=== PATIENT | female | born 1995 | race Caucasian/White ===

== ENCOUNTER 2019-05-14 10:53 | Outpatient (CLI) | payer OTHER, SELFPAY ==
--- NOTE | 2019-05-14 10:59 | US_ITS ---
WS: [id number] ULTRASOUND EARLY TECHNIQUE: Transabdominal sonography of the pelvis was performed. Followed by transvaginal sonography to better evaluate the uterus and ovaries. CLINICAL INFORMATION: , PRIMIGRAVIDA LMP: 03/06/2019 Beta hCG: Unknown. COMPARISON: None. FINDINGS: UTERUS AND GESTATIONAL SAC Intrauterine gestations: Estimated gestational age: 8w4d Estimated delivery December 19, 2025 Yolk sac: 0.4 cm. [place] rump length (CRL): 2.0 cm. heart motion: 164 BPM. Subchorionic hemorrhage: None. Movement visualized. OVARIES Right ovary: Normal. Left ovary: Unable to visualize FREE FLUID None. 2. Estimated gestational age: 8w4d 3. Normal cul-de-sac US/US OB <= 14 weeks fetus [id number] IMPRESSION: 1. Single live intrauterine with pole.
== END 2019-05-14 10:54 | disposition home or self-care (01) ==
LOC: US 10:54
PROVIDERS: Absent Provider Family Medicine; Family Provider Family Medicine; Visit Provider Family Medicine
DX: Z34.01 Encounter for supervision of normal first pregnancy, first trimester (principal)
CPT/HCPCS: 76801

== ENCOUNTER 2019-08-05 07:47 | Outpatient (CLI) | payer OTHER, SELFPAY ==
--- NOTE | 2019-08-05 | US_ITS ---
WS: [id number] OBSTETRICAL ULTRASOUND COMPLETE HISTORY: ANATOMY COMPARISON: 05/14/2019 Single intrauterine gestation in transverse presentation. There are maternal LEFT. Cervix is Closed and normal length. Cervical length is 4.2 cm. Normal amount of amniotic fluid surrounds the fetus. Placenta: Anterior, no previa or abruption. Placenta grade 0 Heart: 147 BPM. Four chambers are identified. Outflow tracts are poorly visualized. Anatomy: Intracranial structures and spine are normal. kidneys, stomach and urinary bladd er are unremarkable. Abdominal wall, three-vessel cord and cord insertion site are normal. 4 extremities are present. profile: Unremarkable. Gender: Male. measurements: BPD = 4.4 cm = 19w3d HC = 17.0 cm = 19w4d AC = 15.7 cm = 20w6d FL = 3.2 cm = 20w1d EFW: 351 g., Measurements are internally concordant. AGA by ultrasound: 20w0d NITESH by ultrasound: 12/23/2019 US/US OB >= 14 weeks fetus [id number] IMPRESSION: 1. Single intrauterine gestation of 20w0d with an EDC of 12/23/2019. Appropria te growth since the first trimester. 2. Unremarkable screening survey of anatomy.
== END 2019-08-05 07:48 | disposition home or self-care (01) ==
LOC: RADWPI 07:50
PROVIDERS: Family Provider Family Medicine; PCP Family Medicine; Visit Provider Family Medicine
DX: Z36.89 Encounter for other specified antenatal screening (principal); Z3A.20 20 weeks gestation of pregnancy
CPT/HCPCS: 76805

== ENCOUNTER 2019-11-09 08:14 | Outpatient (CLI) | payer OTHER, SELFPAY ==
[2019-11-09] VITALS (10 sets, daily range): BP systolic 0–126; BP diastolic 0–79; PULSE 70–90; RESP 14; TEMP 36.4–36.6; BMI 26.7
--- NOTE | 2019-11-09 09:11 | USR_ITS ---
PROCEDURE INFORMATION: Exam: US , Limited Exam date and time: 11/09/2019 9:59 AM Age: 23 years old Clinical indication: complicated by abdominal or pelvic pain; Lower; Third trimester; Gestational age or lmp: 34 wks 1 day; ; Additional info: Placental evaluation TECHNIQUE: Imaging protocol: Real-time ultrasound of the maternal uterus with image documentation. Exam focused on the clinical indication. COMPARISON: US OB >= 14 weeks fetus [id number] 08/05/2019 8:02 AM FINDINGS: Gestation: Intrauterine gestation in vertex presentation. heart rate 131 bpm. Measurements and detailed anatomic survey not performed. Placenta: The placenta is anterior with normal grade 1 echotexture. No evidence of abruption or previa. Amniotic fluid: Subjectively normal amniotic fluid volume. US/US OB limited [id number] IMPRESSION: Limited OB ultrasound. Normal appearance of the placenta. Single living 3rd trimester IUP.
--- NOTE | 2019-11-09 09:12 | USR_ITS ---
PROCEDURE INFORMATION: Exam: US Abdomen, Limited; Right Upper Quadrant Exam date and time: 11/09/2019 10:11 AM Age: 23 years old Clinical indication: Abdominal pain; Epigastric; ; Additional info: Abdominal pain, right upper quadrant TECHNIQUE: Imaging protocol: US abdomen. Real time ultrasound with image documentation. Limited exam focused on the right upper quadrant. COMPARISON: No relevant prior studies available. FINDINGS: Liver: The liver is normal in size and echotexture. No visualized masses. Main portal vein patent with flow in the appropriate direction toward the liver. Gallbladder: Slightly distended gallbladder with numerous small echogenic shadowing layering stones. No wall thickening or pericholecystic fluid. Mild tenderness reported but no definite positive Castro sign. Common bile duct: The common duct measures 4 mm in caliber at the liver hilum. Distal common bile duct obscured by bowel gas. Pancreas: Pancreas poorly visualized secondary to bowel gas. Right kidney: The right kidney measures 10.2 x 5.3 x 5.6 cm with normal cortical thickness and echogenicity. Mild/moderate hydronephrosis. No visualized stones or masses. Grossly normal Doppler of the renal hilum. Aorta/IVC: The upper abdominal aorta and IVC are normal in caliber. More caudad portions obscured by bowel gas. US/US gall bladder [id number] IMPRESSION: 1. Cholelithiasis without specific sonographic evidence of acute cholecystitis. 2. Mild/moderate right hydronephrosis, possibly related to gravid uterus although ureteral calculus not excluded by this exam.
[2019-11-09 09:36] LABS: Basophils # 0.1 10^3/uL (0.0-0.1); Basophils % 0.4 %; Eosinophils % 0.2 %; Hematocrit 36.6 % (37.0-47.0); Lymphocytes # 2.4 10^3/uL (0.8-4.8); Lymphocytes % 16.9 %; Mean Corpuscular HGB Conc 32.8 g/dL (30.0-36.0); Mean Corpuscular Hemoglobin 29.6 pg (28.0-34.0); Mean Corpuscular Volume 90.4 fL (81-99); Monocytes # 0.7 10^3/uL (0.2-0.9); Monocytes % 5.2 %; Neutrophils # 10.81 10^3/uL (1.8-7.7); Neutrophils % 76.7 %; Nucleated Red Blood Cells % 0 %; Platelet Count 233 10^3/cmm (130-400); Red Blood Count 4.05 10^6/uL (4.1-5.3); Red Cell Distribution Width 12.2 % (12.1-15.1); White Blood Count 14.1 10^3/uL (4.0-10.0)
[2019-11-09] MEDS: lactated ringers 1,000 ML 999 ML IV (09:45)
[2019-11-09] MEDS: acetaminophen 500 mg Tablet 1000 MG PO (09:54)
[2019-11-09 10:08] LABS: Urine Appearance Clear (CLEAR); Urine Color Colorless (Yellow)
[2019-11-09 10:09] LABS: Add Urine Culture? No; Bacteria Urine 1+; Bilirubin Urine Neg (NEGATIVE); Blood Urine Neg (Negative); Glucose Urine UA Norm (Normal); Ketones Urine 1+ (Negative); Leukocyte Esterase Urine Negative (Negative); Nitrate Urine Negative (Negative); Protein Urine Neg (Negative); Specific Gravity, Urine 1.005 (1.005-1.030); Squamous Epithelial Cell Urine 0-4 (0-5); Urobilinogen Urine Norm (Negative); pH Urine 6.5 (5-7)
[2019-11-09 10:29] LABS: Alanine Aminotransferase 8 U/L (0-33); Alkaline Phosphatase 88 IU/L (35-105); Anion Gap 14.5 (5-19); Aspartate Amino Transferase 18 U/L (0-32); Blood Urea Nitrogen 10 mg/dL (6-20); Carbon Dioxide 23 mmol/L (22-29); Chloride 101 mmol/L (98-107); Globulin 2.5 g/dL (1.3-4.6); Glomerular Filtration Rate 155.7 mL/min (90-130); Glucose 116 mg/dL (65-115); Osmolality Calculated 277 mOsm/kg (285-295); Potassium 3.5 mmol/L (3.5-5.1); Sodium 135 mmol/L (136-145); Total Bilirubin 0.3 mg/dL (0.15-1.2); Total Protein 6.5 g/dL (6.6-8.7)
[2019-11-09 10:41] LABS: Calcium 9.4 mg/dL (8.5-10.5)
[2019-11-09 12:09] LABS: Lipase 24 U/L (13-60)
== END 2019-11-09 11:12 | disposition home or self-care (01) ==
PROVIDERS: Family Provider Family Medicine; PCP Family Medicine; Visit Provider Family Medicine
DX: O21.9 Vomiting of pregnancy, unspecified (principal); Z3A.34 34 weeks gestation of pregnancy; M54.9 Dorsalgia, unspecified
CPT/HCPCS: 36415; 59025; 76705; 76815; 80053; 81001; 83690; 85025; 86141; 99211

== ENCOUNTER 2019-12-18 02:30 | Outpatient (CLI) | payer OTHER, MEDICAID, SELFPAY ==
[2019-12-18 02:38] VITALS: BP 127/78; PULSE 78; RESP 16; TEMP 37.1
[2019-12-18 02:45] VITALS: BMI 29.0
[2019-12-18 04:51] VITALS: BP 110/65; PULSE 72; RESP 16; TEMP 36.9
[2019-12-18 05:06] VITALS: BP 110/65; PULSE 72; RESP 16; TEMP 36.9
== END 2019-12-18 05:16 | disposition home or self-care (01) ==
LOC: OPOB 02:30 → OBGYN 05:12
PROVIDERS: PCP Family Medicine; Visit Provider Family Medicine
DX: O26.899 Other specified pregnancy related conditions, unspecified trimester (principal); Z3A.00 Weeks of gestation of pregnancy not specified; R10.9 Unspecified abdominal pain
CPT/HCPCS: 59025; 99211

== ENCOUNTER 2019-12-25 05:50 | Inpatient (IN) | payer OTHER, MEDICAID, SELFPAY ==
[2019-12-25] VITALS (82 sets, daily range): BP systolic 0–145; BP diastolic 0–92; PULSE 61–112; RESP 16–18; TEMP 36.3–37; O2SAT 98; BMI 33.5
[2019-12-25] MEDS: oxytocin 30 UNIT/500 ML BAG 4 UNIT IV (07:24)
[2019-12-25] MEDS: dextrose 5%-lactated ringers 1,000 ML 125 ML IV (07:24)
[2019-12-25 07:28] LABS: Basophils # 0.1 10^3/uL (0.0-0.1); Basophils % 0.4 %; Eosinophils # 0.1 10^3/uL (0.0-0.8); Eosinophils % 0.7 %; Hematocrit 37.4 % (37.0-47.0); Hemoglobin 12.2 g/dL (11.5-15.3); Lymphocytes # 2.6 10^3/uL (0.8-4.8); Lymphocytes % 20.4 %; Mean Corpuscular HGB Conc 32.6 g/dL (30.0-36.0); Mean Corpuscular Hemoglobin 29.7 pg (28.0-34.0); Mean Platelet Volume 11.8 fL (7.4-10.4); Monocytes # 0.8 10^3/uL (0.2-0.9); Monocytes % 6.6 %; Neutrophils # 8.84 10^3/uL (1.8-7.7); Neutrophils % 70.7 %; Nucleated Red Blood Cells % 0 %; Platelet Count 199 10^3/cmm (130-400); Red Blood Count 4.11 10^6/uL (4.1-5.3); White Blood Count 12.5 10^3/uL (4.0-10.0)
--- NOTE | 2019-12-25 07:45 | PM.HP ---
Providers/Chief Complaint Admitting Physician: Zaki Oviedo MD Primary Care Provider: Zaki Oviedo MD Chief Complaint: induction History of Present Illness Mackenzie Kaye is a 23 year old at 40.4 weeks gestation by 8-week ultrasound inconsistent with LMP. Her is complicated by anemia. The patient presents for a scheduled induction of labor secondary to postdates. She is in good health and denies any chest pains, cough, nasal congestion, fever, nausea, vomiting, diarrhea, constipation, leakage of fluid, vaginal bleeding, dysuria. The patient had a surgery on her right patella in 2012. Medications/Allergies Home Medications Medication Instructions Recorded Confirmed Last Taken Type PNV cmb#95-ferrous fumarate-FA 1 tab PO 12/25/19 12/25/19 05:00 History [] PFSH Acute PFSH: Social History (Updated 12/25/19 @ 08:08 by Zaki Oviedo MD) Smoking and tobacco status: never smoked Alcohol intake: former Former alcohol use details: None during . Substance/Drug Use: never Current occupational status: employed Female Reproductive History: : 1 Vitals/I&O/Wt Last Vital Signs Pulse 69 12/25/19 07:44 BP 117/67 12/25/19 07:44 Weight last 48 hrs Weight 183 lb Physical Exam Narrative: EXAM NARRATIVE: General: Alert and oriented x3 Eyes: Pupils equal round and reactive to light and accommodation Mouth: Mucous membranes moist, pharynx non-erythematous Cardiac: Regular rate and rhythm without murmurs Lungs: Clear to auscultation bilaterally without wheezes, crackles or rhonchi Abdomen: Soft, non-tender, fundus consistent with gestational age Extremities: Trace edema in the bilateral lower extremities Data : 12/25/19 06:35 A&P Additional A&P Information The patient is doing well at this time. Upon admission her cervical exam is 3/75/-3. She is yesenia every 5 to 10 minutes but they are not painful. The patient has been started on IV Pitocin for induction of labor. We will proceed with routine induction of labor at this time. Precautions discussed with the patient. Routine intrapartum management discussed. All questions were answered. For now she would like to forego getting an epidural, however this is okay if she changes her mind. Attestations Medical Necessity Statement*: The patient will be here for greater than 2 midnights due to routine intrapartum and management of labor and delivery. Coding Level of Care Code Acute Inspector Packager for Christopher Tovar
[2019-12-25] MEDS: lactated ringers 1,000 ML 999 ML IV ×2 (15:29→16:42)
[2019-12-25] MEDS: ondansetron 2 mg/ML SDV 2 mL 4 MG IVP (16:33)
[2019-12-25] MEDS: lidocaine 2% INJ 20 mL INJECTION (17:47)
--- NOTE | 2019-12-25 17:47 | P.PCNOB_ITS ---
Delivery Note: Date of delivery: December 25, 2019 Pre-delivery diagnoses: 1. Intrauterine at 40.4 weeks gestation 2. Anemia during third trimester on iron Post-delivery diagnoses: 1. Intrauterine status post spontaneous vaginal delivery at 40.4 weeks gestation 2. Anemia during third trimester 3. Delivery of healthy male with Apgars of 8 and 9 Procedure: Spontaneous vaginal delivery Op report anesthesia: None Delivering Physician: Zaki Oviedo MD Estimated blood loss (mL): 125 Findings: Mackenzie Kaye is a 23 year old G1 now P1 status post spontaneous vaginal delivery at 40.4 weeks gestation by 8-week ultrasound inconsistent with LMP. Her was complicated by third trimester mild anemia. Pre-Delivery Course: The patient was admitted to labor and delivery for a planned induction of labor secondary to postdates on the morning of 12/25/2019. The patient was 3 cm dilated upon admission. The patient was started on IV Pitocin and she made steady change. SROM took place shortly before the patient was complete. The patient was complete at approximately 1659. Delivery: The patient again pushing at 1702 on 12/25/2019. The patient pushed well and the infant delivered at 1707 on 12/25/2019 in the OA position. The right shoulder was the anterior shoulder and it delivered with steady downward pressure. Rest of the delivered without complication. There was no nuchal cord. The 's mouth and nose were bulb suctioned by myself and the was crying immediately after delivery. The infant was placed on the mother's chest where the nurses were waiting to care for him. The cord was clamped by myself after approximately 1 minute and cut by the infant's father. Cord blood was obtained. The cord was then drained of blood and traction was placed on the umbilical cord. The placenta delivered without complication at 1712 on 12/25/2019. The placenta was noted to be intact with a peripheral umbilical cord insertion site. Three-vessel cord was noted. The uterus was massaged. IV Pitocin was bolused. The patient's bleeding was minimal. The patient cervix was inspected and no lacerations were noted. The patient's vaginal wall was inspected and a second-degree right vaginal wall tear was noted. 2% lidocaine was placed for anesthesia locally and 3-0 Vicryl was used to repair the laceration in a running fashion. The patient tolerated this well. Rectal exam was done and no sutures were noted in the rectal vault. Currently both the mother and infant are doing well. A&P Assessment and plan (1) Intrauterine : Status: Acute (2) Spontaneous vaginal delivery: Status: Acute (3) Laceration of vaginal wall or sulcus without perineal laceration during delivery: Status: Acute Coding Level of Care Code Acute Presidential Helicopter Crew Chief for Chg Fwd Diagnoses Intrauterine Z34.90 Spontaneous vaginal delivery O80 Laceration of vaginal wall or sulcus without perineal laceration during delivery O71.4
[2019-12-25] MEDS: lanolin oint 7 gm 1 APPLIC TOPICAL (18:57)
[2019-12-25] MEDS: benzocaine-menthol 78 gm Canister 1 SPRAY TOPICAL (18:57)
[2019-12-25] MEDS: docusate sodium 100 mg Capsule PO (18:57)
--- NOTE | 2019-12-25 19:00 | PC.NURSE ---
Patient up to bathroom but was unable to void.
[2019-12-26 01:15] VITALS: BP 118/71; PULSE 77; RESP 17; O2SAT 98
[2019-12-26 03:15] VITALS: BP 101/63; PULSE 76; RESP 18
[2019-12-26 06:39] LABS: Hematocrit 31.9 % (37.0-47.0); Hemoglobin 10.2 g/dL (11.5-15.3); Mean Corpuscular Hemoglobin 29.6 pg (28.0-34.0); Mean Corpuscular Volume 92.5 fL (81-99); Mean Platelet Volume 11.5 fL (7.4-10.4); Platelet Count 185 10^3/cmm (130-400); Red Blood Count 3.45 10^6/uL (4.1-5.3); Red Cell Distribution Width 14.3 % (12.1-15.1); White Blood Count 14.5 10^3/uL (4.0-10.0)
[2019-12-26 07:38] VITALS: BP 119/77; PULSE 67; RESP 16; TEMP 36.8
[2019-12-26] MEDS: docusate sodium 100 mg Capsule PO (09:59)
[2019-12-26] MEDS: prenatal vitamin Capsule 1 CAP PO (09:59)
[2019-12-26 12:32] VITALS: BP 100/59; PULSE 63; RESP 16; TEMP 36.8; O2SAT 96
--- NOTE | 2019-12-26 16:20 | P.DS_ITS ---
Discharge Providers Date of Admission: 12/25/19 05:50 Date of Discharge: December 26, 2019 Attending Provider at Admission: Zaki Oviedo MD Attending Provider at Discharge: Zaki Oviedo MD Primary Care Provider: Zaki Oviedo MD Diagnoses at Discharge Discharge Diagnosis (1) Intrauterine : Status: Resolved (2) Spontaneous vaginal delivery: Status: Resolved (3) Laceration of vaginal wall or sulcus without perineal laceration during delivery: Status: Resolved Reason for Visit Reason for Visit: induction Hospital Course Hospital Course: The patient was admitted to labor and delivery for a planned induction of labor secondary to postdates on the morning of 12/25/2019. The patient was 3 cm dilated upon admission. The patient was started on IV Pitocin and she made steady change. SROM took place shortly before the patient was complete. The patient was complete at approximately 1659. The patient again pushing at 1702 on 12/25/2019. The patient pushed well and the delivered at 1707 on 12/25/2019 in the OA position. The right shoulder was the anterior shoulder and it delivered with steady downward pressure. Rest of the delivered without complication. There was no nuchal cord. The infant's mouth and nose were bulb suctioned by myself and the infant was crying immediately after delivery. The infant was placed on the mother's chest where the nurses were waiting to care for him. The cord was clamped by myself after approximately 1 minute and cut by the infant's father. Cord blood was obtained. The cord was then drained of blood and traction was placed on the umbilical cord. The placenta delivered without complication at 1712 on 12/25/2019. The placenta was noted to be intact with a peripheral umbilical cord insertion site. Three-vessel cord was noted. The uterus was massaged. IV Pitocin was bolused. The patient's bleeding was minimal. The patient cervix was inspected and no lacerations were noted. The patient's vaginal wall was inspected and a second- degree right vaginal wall tear was noted. 2% lidocaine was placed for anesthesia locally and 3-0 Vicryl was used to repair the laceration in a running fashion. The patient tolerated this well. Rectal exam was done and no sutures were noted in the rectal vault. The patient has done very well without any complications. Her bleeding is decreasing well. Her pain is well controlled with Motrin alone. She is breast-feeding. She is ambulating, voiding, passing gas and tolerating food by mouth. Routine instructions were given. All questions were answered. The patient would like to be discharged home this afternoon. She is stable to do so. She will follow-up with me at 6 weeks or sooner if needed. Physical Exam Narrative: EXAM NARRATIVE: General: Alert and oriented x3 Cardiac: Regular rate and rhythm without murmurs Lungs: Clear to auscultation bilaterally without wheezes, crackles or rhonchi Abdomen: Soft, mild tenderness over the uterus. Uterus is firm and midline and 2 cm below the umbilicus. Extremities: +1 pitting edema in the bilateral lower extremities Discharge Data Data Completed and Pending: Pending at discharge Category Date Time Status PTC COVID [Yan virus Lab Test PTC ] Stat Lab 12/25/19 07:00 Received Labs from last 24 hours 12/26/19 06:00 WBC 14.5 H RBC 3.45 L Hgb 10.2 L Hct 31.9 L MCV 92.5 MCH 29.6 MCHC 32.0 RDW 14.3 Plt Count 185 MPV 11.5 H Vitals: Last Vital Signs Temp 98.2 F 12/26/19 12:32 Pulse 63 12/26/19 12:32 Resp 16 12/26/19 12:32 BP 100/59 12/26/19 12:32 Pulse Ox 96 12/26/19 12:32 Discharge Plan Discharge Patient Disposition: Home Condition: Good Prescriptions: New ibuprofen 800 mg Tablet 800 mg PO TID Qty: 60 RF: 0 ferrous sulfate 325 mg (65 mg iron) tablet,delayed release (DR/EC) 325 mg PO BID Qty: 30 RF: 0 Continued PNV cmb#95-ferrous fumarate-FA [] 28 mg iron- 800 mcg Tablet 1 tab PO DAILY RF: 0 Discharge Orders: Discharge Order (Routine); Ordered 12/26/19 Ordered By: Zaki Oviedo Referrals: Zaki Oviedo MD [Primary Care Provider] - 6 Weeks (Please call and make an appt.) Discharge Diet: Regular Discharge Activity: Increase activity as tolerated Patient Instructions: Iron Supplements (By mouth), Your Baby (G EN), Expression, Collection and Storage of Breastmilk (GEN), How to Hold and Breastfeed Your Baby (GEN), and Nipple Soreness (GEN), Breast Fullness Versus Breast Engorgement (GEN), How to Increase Your Milk Supply (GEN), and Your Diet (GEN), OB Discharge Report, OB Food/Drug Interaction Guide, OB Vaginal Deliveries Activity Restrictions/Additional Instructions: Nothing per vagina for 6 weeks. If you have any concerns prior to your appointment, please call for a sooner appointment. Discharge Date/Time: 12/26/19 19:02 Discharge Attestations Time Spent in Discharge Care*: greater than 30 min Specific Discharge Activities: Specific discharge activities: educating patient, educating and/or supporting family/caregiver and documenting/other paperwork Quality Metrics Clinical Quality Measures During this hospital stay, did patient experience: None Coding Level of Care Code Acute Executive Chef Assistant for Christopher Tovar Diagnoses Intrauterine Z34.90 Spontaneous vaginal delivery O80 Laceration of vaginal wall or sulcus without perineal laceration during delivery O71.4
[2019-12-26 17:26] VITALS: BP 129/76; PULSE 83; RESP 17; TEMP 36.7
[2019-12-26 18:35] VITALS: BP 107/66; PULSE 80; RESP 16; TEMP 37.1
[2019-12-27 18:38] LABS: Coronavirus Lab Test PTC Negative
== END 2019-12-26 19:02 | disposition home or self-care (01) | DRG 807 ==
PROVIDERS: Admitting Provider Family Medicine; PCP Family Medicine; Visit Provider Family Medicine
DX: O48.0 Post-term pregnancy (principal); Z37.0 Single live birth; Z3A.40 40 weeks gestation of pregnancy; O99.02 Anemia complicating childbirth; D64.9 Anemia, unspecified
CPT/HCPCS: 12345; 36415; 59025; 59409; 85025; 85027; 87635; 96375; 98960; 99211; J2405

== ENCOUNTER 2020-01-25 21:13 | Observation (INO) | payer OTHER, MEDICAID, SELFPAY ==
[2020-01-25] VITALS (8 sets, daily range): BP systolic 105–133; BP diastolic 69–77; PULSE 60–94; RESP 16–20; TEMP 36.2–37; O2SAT 96–99; BMI 25.2
--- NOTE | 2020-01-25 21:30 | US_ITS ---
WS: [id number] RIGHT UPPER QUADRANT ULTRASOUND HISTORY: Pain COMPARISON: 11/09/2019 Liver: 14.9 cm in length. Normal size liver. No bile duct dilatation or mass. Gallbladder: Normally distended gallbladder. Numerous stones are in the dependent portion of the gall bladder. No wall thickening or pericholecystic fluid. CBD: 0.3 cm Pancreas: Normal size and echogenicity. Right kidney: 9.1 cm in length. Normal size and echogenicity. No hydronephrosis or mass. Aorta and IVC: Unremarkable abdominal aorta and IVC. No ascites. US/US gall bladder [id number] IMPRESSION: Cholelithiasis without evidence for acute cholecystitis.
--- NOTE | 2020-01-25 21:32 | ED_ITS ---
HPI - Abdominal Pain General: Chief Complaint: Abdominal Pain Stated Complaint: ab pain Time Seen by Provider: 01/25/20 21:23 Source: patient Mode of arrival: ambulatory Limitations: no limitations History of Present Illness: HPI narrative: Mackenzie is a very nice 24-year-old female who comes in complaining of right upper quadrant abdominal pain. Patient has had multiple flareups from her gallbladder and gallstones while she was . Mackenzie just recently delivered a baby but today alone has had 2 or 3 attacks.'s associated nausea but no fever. Pain is all in the right upper quadrant and does not migrate but does radiate to her right shoulder. She has nausea but no vomiting. She does not describe any diarrhea or constipation. She states that eating makes her symptoms worse and rest makes them better. Associated Symptoms: Reports nausea; Denies chills, coffee ground emesis, constipation, GI cramping, diarrhea, dysuria, fever(s), heartburn, hematochezia, hematuria, hematemesis, melena, syncope and vomiting Review of Systems Const: Denies: fever(s), chills, body aches, fatigue, malaise or diaphoresis Eyes: Denies: change in vision, blurry vision, photophobia, eye discomfort, eye discharge, eye redness or yellow eyes ENMT: Denies: throat pain, odynophagia, hoarseness, swelling of lips/tongue, ear or mastoid pain, ear discharge, change in hearing or nasal discharge Card: Denies: chest pain, palpitations, irregular heart rhythm, edema, lightheadedness, syncope, pre-syncope, dyspnea on exertion or orthopnea Resp: Denies: dyspnea, productive cough, non-productive cough, wheezing, hemoptysis or chest congestion GI: Reports: abdominal pain and nausea; Denies: vomiting, hematemesis, coffee ground emesis, heartburn, diarrhea, constipation, GI cramping, hematochezia or melena : Denies: flank pain, dysuria, urinary frequency, urinary urgency or hematuria Musc: Denies: neck pain, back pain, extremity pain, extremity swelling, joint pain, joint swelling, joint redness, joint warmth or joint stiffness Skin/Breast: Denies: rash, pruritus, erythema, skin pain or skin tenderness Neuro: Denies: headache(s), numbness in extremities, weakness in extremities, sensory changes, lack of coordination, difficulty walking, dizziness, vertigo, confusion, Slurred speech present or seizure-like activity Bebeto/Lymph: Denies: easy bruising, easy bleeding, petechiae, purpura or enlarged lymph nodes All/Imm: Denies: urticaria, throat swelling, tongue swelling, facial swelling or acute wheezing PFSH ED 2 PFSH: Medical History (Updated 01/25/20 @ 23:01 by Sheila Sandra) Cholelithiasis Social History (Updated 12/25/19 @ 08:08 by Zaki Oviedo MD) Smoking and tobacco status: never smoked Alcohol intake: former Former alcohol use details: None during . Current occupational status: employed Physical Exam Const: COMMON NORMALS: no acute distress, patient oriented x3, no limitations and alert GENERAL APPEARANCE: cooperative HENMT: COMMON NORMALS: normocephalic, atraumatic, external ears normal, EAC's normal and Normal external nose present HEAD & SCALP: normal to inspection, normocephalic and atraumatic FACE & SINUS: normal facial exam and face symmetric NOSE: Normal external nose present and Normal nares present EXTERNAL EAR: Yes external ears normal EXTERNAL AUDITORY CANAL: EAC's normal MOUTH: Normal oral and palatal mucosa present, lip normal and tongue normal Eye: COMMON NORMALS: Equal, round and reactive pupils present and conjunctivae normal GENERAL EYE: appearance normal, both eyes and all related structures ALIGNMENT: Yes alignment normal PERIORBITAL: periorbital findings normal EYELID: eyelids normal CONJUNCTIVA: Yes conjunctivae normal SCLERA: sclerae normal PUPIL: Yes Equal, round and reactive pupils present Neck/C-Spine: COMMON NORMALS: full ROM, no lymphadenopathy, supple, no meningeal signs and no JVD GENERAL: Yes normal visual inspection and Yes trachea midline Chest: COMMONS NORMALS: normal inspection of the chest and normal palpation of entire chest wall Resp: COMMON NORMALS: normal respiratory effort, No retractions, No use of accessory muscles and clear to auscultation bilaterally EFFORT & INSPECTION: Yes able to speak in complete sentences and Yes symmetric chest movement AUSCULTATION: clear to auscultation bilaterally, no crackles, no rales, no rhonchi and no wheezes Cardio: COMMON NORMALS: no JVD, regular rate, regular rhythm, S1 normal heart sound present and S2 normal heart sound present RATE: regular rate RHYTHM: regular rhythm HEART SOUNDS: S1 normal heart sound present, S2 normal heart sound present, no click, no gallops, no murmurs and no rubs GI: COMMON NORMALS: Soft to palpation and No hepatosplenomegaly present PALPATION: Yes Soft to palpation, Yes Tenderness to palpation present (GI) (Moderate to severe) Details: RUQ, No Guarding due to palpation present (GI), No Rigid due to palpation, Yes No hepatosplenomegaly present, No Hernia present, No Palpable mass present and No Pulsatile mass present : COMMON NORMALS: Yes no CVA tenderness BLADDER/KIDNEY EXAM: Yes no CVA tenderness EXTERNAL FEMALE EXAM: No Hernia present Back/Pelvis: COMMON NORMALS: no CVA tenderness, thoracic and lumbar spine no rmal to inspection, no thoracic nor lumbar tenderness and thoraco-lumbar ROM normal Extremity: COMMON NORMALS: normal to inspection, full ROM, capillary refill normal, no joint enlargement, no clubbing, cyanosis or edema and no calf tenderness Neuro: COMMON NORMALS: patient oriented x3, CN's II-XII intact bilaterally, moves all extremities, no focal motor deficits and no sensory deficits noted SENSORIUM/ORIENTATION: Yes alert MENINGEAL SIGNS: Yes no meningeal signs SPEECH: speech normal Psych: COMMON NORMALS: mental status grossly normal, Normal thought process present, cooperative, normal affect, speech normal and activity/motor behavior normal SPEECH: Yes normal speech THOUGHT PROCESS: Normal thought process present Skin: COMMON NORMALS: no rashes or lesions noted, turgor normal, no jaundice, no petechiae and no mottling GENERAL SKIN EXAM: no rashes or lesions noted and turgor normal Course 2 Vital Signs: Vital signs: Vital Signs Temperature 97.4 F L 01/25/20 23:48 Pulse Rate 60 01/25/20 23:48 Respiratory Rate 20 H 01/25/20 23:48 Blood Pressure 105/69 01/25/20 23:48 Pulse Oximetry 96 01/25/20 23:48 MDM - Abdominal Pain MDM Narrative: Medical decision making narrative: The case was reviewed with Dr. Plascencia. The patient has pad pain almost all day and is still having pain at this time. She has had no fever but has been very nauseated. Patient has markedly increased gallstones in comparison to her previous ultrasound. Because of her intractable pain and increasing amount of gallstones Dr. Plascencia agrees she will need to have a cholecystectomy. Patient agrees to stay. Further care be dictated by Dr. Plascencia on an inpatient basis. Lab Data: Attestation: I reviewed the patient's lab results. Labs: Lab Results 01/25/20 01/25/20 01/25/20 Range/Units 21:40 21:40 21:50 WBC 11.1 H (4.0-10.0) 10^3/ uL RBC 4.34 (4.1-5.3) 10^6/u L Hgb 12.5 (11.5-15.3) g/dL Hct 39.7 (37.0-47.0) % MCV 91.5 (81-99) fL MCH 28.8 (28.0-34.0) pg MCHC 31.5 (30.0-36.0) g/dL RDW 12.4 (12.1-15.1) % Plt Count 352 (130-400) 10^3/c mm MPV 10.9 H (7.4-10.4) fL Neut % (Auto) 72.1 % Lymph % (Auto) 19.0 % [place] % (Auto) 6.7 % Eos % (Auto) 1.4 % Baso % (Auto) 0.6 % Neut # (Auto) 7.97 H (1.8-7.7) 10^3/u L Lymph # (Auto) 2.1 (0.8-4.8) 10^3/u L [place] # (Auto) 0.7 (0.2-0.9) 10^3/u L Eos # (Auto) 0.2 (0.0-0.8) 10^3/u L Baso # (Auto) 0.1 (0.0-0.1) 10^3/u L Nucleated RBC % (a uto) 0 % Nucleated RBCs # 0.0 /100WBC Sodium 142 (136-145) mmol/L Potassium 3.6 (3.5-5.1) mmol/L Chloride 103 (98-107) mmol/L Carbon Dioxide 25 (22-29) mmol/L Anion Gap 17.6 (5-19) BUN 21 H (6-20) mg/dL Creatinine 1.0 H (0.5-0.9) mg/dL GFR Calculation 69.3 L (90-130) mL/min Glucose 110 (65-115) mg/dL Calculated Osmolal ity 298 H (285-295) mOsm/k g Calcium 9.5 (8.5-10.5) mg/dL Total Bilirubin 0.2 (0.15-1.2) mg/dL AST 49 H (0-32) U/L ALT 30 (0-33) U/L Alkaline Phosphata se 114 H (35-105) IU/L Total Protein 6.9 (6.6-8.7) g/dL Albumin 4.5 (3.5-5.2) g/dL Globulin 2.4 (1.3-4.6) g/dL Lipase 62 H (13-60) U/L Urine Color Yellow (Yellow) Urine Appearance Clear (CLEAR) Urine pH 5 (5-7) Ur Specific Gravit y 1.020 (1.005-1.030) Urine Protein Neg (Negative) Urine Glucose (UA) Norm (Normal) Urine Ketones Negative (Negative) Urine Blood Neg (Negative) Urine Nitrate Negative (Negative) Urine Bilirubin Neg (Negative) Urine Urobilinogen Norm (Negative) mg/dL Ur Leukocyte Razia ase Negative (Negative) Imaging Data ^: US: My impression: Ultrasound gallbladder, tech interpretation -multiple gallstones in the gallbladder markedly increased from previous. No gallbladder wall thickening. Normal common bile duct. Discharge Plan Discharge Patient Disposition: Placed in Observation Admit Provider: Donn Mirza Clinical Impression: Intractable abdominal pain Cholelithiasis Qualifiers: Cholelithiasis location: gallbladder Cholecystitis presence: without cholecystitis Biliary obstruction: without biliary obstruction Qualified Code(s): K80.20 - Calculus of gallbladder without cholecystitis without obstruction Condition: Stable Discharge Date/Time: 01/25/20 23:21 Coding Level of Care Code ED Bookmobile Clerk for Chg Fwd Exam Comprehensive
[2020-01-25 21:48] LABS: Basophils # 0.1 10^3/uL (0.0-0.1); Basophils % 0.6 %; Eosinophils # 0.2 10^3/uL (0.0-0.8); Eosinophils % 1.4 %; Hematocrit 39.7 % (37.0-47.0); Hemoglobin 12.5 g/dL (11.5-15.3); Lymphocytes # 2.1 10^3/uL (0.8-4.8); Mean Corpuscular HGB Conc 31.5 g/dL (30.0-36.0); Mean Corpuscular Hemoglobin 28.8 pg (28.0-34.0); Mean Corpuscular Volume 91.5 fL (81-99); Mean Platelet Volume 10.9 fL (7.4-10.4); Monocytes # 0.7 10^3/uL (0.2-0.9); Monocytes % 6.7 %; Neutrophils # 7.97 10^3/uL (1.8-7.7); Neutrophils % 72.1 %; Nucleated Red Blood Cells % 0 %; Platelet Count 352 10^3/cmm (130-400); Red Blood Count 4.34 10^6/uL (4.1-5.3); Red Cell Distribution Width 12.4 % (12.1-15.1); White Blood Count 11.1 10^3/uL (4.0-10.0)
[2020-01-25] MEDS: ondansetron 2 mg/ML SDV 2 mL 4 MG IVP (21:56)
[2020-01-25 21:57] LABS: Add Urine Microscopic? NO
[2020-01-25] MEDS: morphine 4 mg/mL SDV 1 mL IVP (21:57)
[2020-01-25] MEDS: sodium chloride 0.9% 1,000 ML 999 ML IV (21:57)
[2020-01-25 22:06] LABS: Alanine Aminotransferase 30 U/L (0-33); Albumin Level 4.5 g/dL (3.5-5.2); Alkaline Phosphatase 114 IU/L (35-105); Anion Gap 17.6 (5-19); Aspartate Amino Transferase 49 U/L (0-32); Blood Urea Nitrogen 21 mg/dL (6-20); Calcium 9.5 mg/dL (8.5-10.5); Carbon Dioxide 25 mmol/L (22-29); Chloride 103 mmol/L (98-107); Globulin 2.4 g/dL (1.3-4.6); Glomerular Filtration Rate 69.3 mL/min (90-130); Glucose 110 mg/dL (65-115); Lipase 62 U/L (13-60); Osmolality Calculated 298 mOsm/kg (285-295); Potassium 3.6 mmol/L (3.5-5.1); Sodium 142 mmol/L (136-145); Total Bilirubin 0.2 mg/dL (0.15-1.2); Total Protein 6.9 g/dL (6.6-8.7)
[2020-01-25 22:14] LABS: Bilirubin Urine Neg (Negative); Blood Urine Neg (Negative); Glucose Urine UA Norm (Normal); Ketones Urine Negative (Negative); Leukocyte Esterase Urine Negative (Negative); Nitrate Urine Negative (Negative); Protein Urine Neg (Negative); Urine Appearance Clear (CLEAR); Urine Color Yellow (Yellow); Urobilinogen Urine Norm (Negative); pH Urine 5 (5-7)
[2020-01-25 22:55] LABS: SARS Covid-2 Antigen Negative (Negative)
--- NOTE | 2020-01-25 23:03 | PC.NURSE ---
Patient pumping breast milk-aware of plan for admit and surgery
[2020-01-25] MEDS: piperacillin-tazobactam 3.375 GM in sodium chloride 0.9% (plus) 50 ML IV (23:08)
--- NOTE | 2020-01-25 23:47 | PC.NURSE ---
ADMIT NOTE Pt to floor from ER via wheelchair at [id number]. Is alert and oriented. Denies pain or nausea at present time. Says the meds given in ER worked. Reports has had intermittent prooblems with pain across chest/upper abdomen that radiates in between shoulder blades since October which was during . Abd soft with tenderness in RUQ. Has been told taylor avalos in am
[2020-01-26] VITALS (14 sets, daily range): BP systolic 94–134; BP diastolic 59–86; PULSE 46–114; RESP 14–25; TEMP 33.7–37; O2SAT 96–100
[2020-01-26] MEDS: dextrose 5%-sod chloride 0.45% 1,000 ML 100 ML IV ×2 (00:07→09:32)
[2020-01-26 03:51] LABS: Basophils # 0.1 10^3/uL (0.0-0.1); Basophils % 1.1 %; Eosinophils # 0.2 10^3/uL (0.0-0.8); Eosinophils % 3.5 %; Hematocrit 39.6 % (37.0-47.0); Hemoglobin 12.5 g/dL (11.5-15.3); Lymphocytes # 2.8 10^3/uL (0.8-4.8); Lymphocytes % 41.9 %; Mean Corpuscular HGB Conc 31.6 g/dL (30.0-36.0); Mean Corpuscular Hemoglobin 28.7 pg (28.0-34.0); Mean Platelet Volume 10.6 fL (7.4-10.4); Monocytes # 0.5 10^3/uL (0.2-0.9); Monocytes % 7.4 %; Neutrophils # 3.05 10^3/uL (1.8-7.7); Neutrophils % 45.9 %; Nucleated Red Blood Cells % 0 %; Platelet Count 316 10^3/cmm (130-400); Red Blood Count 4.35 10^6/uL (4.1-5.3); Red Cell Distribution Width 12.4 % (12.1-15.1); White Blood Count 6.6 10^3/uL (4.0-10.0)
[2020-01-26 04:18] LABS: Alanine Aminotransferase 31 U/L (0-33); Albumin Level 3.9 g/dL (3.5-5.2); Alkaline Phosphatase 101 IU/L (35-105); Aspartate Amino Transferase 35 U/L (0-32); Blood Urea Nitrogen 15 mg/dL (6-20); Calcium 9.2 mg/dL (8.5-10.5); Carbon Dioxide 25 mmol/L (22-29); Chloride 107 mmol/L (98-107); Globulin 2.3 g/dL (1.3-4.6); Glomerular Filtration Rate 89.7 mL/min (90-130); Glucose 112 mg/dL (65-115); Osmolality Calculated 296 mOsm/kg (285-295); Sodium 142 mmol/L (136-145); Total Bilirubin 0.3 mg/dL (0.15-1.2); Total Protein 6.2 g/dL (6.6-8.7)
--- NOTE | 2020-01-26 05:52 | PC.NURSE ---
SHIFT SUMMARY Has rested well since admission. No request for pain or nausea meds. Normally new baby so is pumping. IV fluids infusing at 100ml/hr rate. Voiding well. Abdomen soft with tenderness to RUQ. NPO since admission
[2020-01-26] MEDS: piperacillin-tazobactam 3.375 GM in sodium chloride 0.9% (plus) 50 ML IV ×2 (06:21→11:29)
[2020-01-26 07:02] LABS: HCG Qualitative Urine. Negative (Negative)
--- NOTE | 2020-01-26 10:07 | PC.CHAP ---
Pastoral Care Encounter/Spiritual Assessment Type of Contact [] Declined regional truck driver visit [] Patient/Family/Request visit [] Outpatient visit [] Follow-up visit [] Physician referral [] Code/Alert [x] Routine visit [] Staff referral [] Actively dying [] Patient sleeping [] Family support [] [] Out of room [] Palliative care [] [] Receiving care in room [] Pre-surgical visit [] Trauma [] Long length of stay [] ICU visit [] Other: Relational/Emotional Strength [] Patient feels connected with others/family/visitors/staff [] Distress [] Loneliness/isolation [] Abandonment Spirituality of Patient [] Person of Alexandra [] Attends Holiness of their Alexandra [] Believes in Prayer [] Reads Bible or Pentecostal materials [] There are Spiritual issues to be addressed Store Gift Wrap Associate Interventions [x] Prayer [x] Active listening [x] Non-anxious presence [x] Spiritual/emotional support [] Crisis/trauma care [] Spiritual counseling [] Bereavement support [] Provided bereavement packet [] Provided Bible/devotional materials [] Provided toy/stuffed animal, coloring book to patient or family member [] Provided Communion [] Anointing/[place] [] Salvation [x] Completed spiritual assessment [] Other: Impact on Illness or Injury [] Angry [] Fearful [] Anxious [] Often cries [] Exhaustion [] Unable to work [] Unable to attend denominational [] Unable to walk/stand [] Unable to read [] Unable to drive [] Unable to eat/drink [] Unable to sleep [] Unable to be with family [] Patient intubated [] Other: Summary Patient scheduled for surgery today 2 pm.. remove gallbladder. New mother, anxious to get home to baby. Time spent with patient 10 min
--- NOTE | 2020-01-26 11:08 | P.HP_ITS ---
Providers/Chief Complaint Admitting Physician: Donn Mirza MD Primary Care Provider: Zaki Oviedo MD Chief Complaint: ab pain History of Present Illness Mackenzie Kaye is a 24 year old female who presented to the ER last night with severe right-sided abdominal pain associated nausea and vomiting. Patient had a baby 4 weeks ago and states that she has been having intermittent episodes of pain mainly in the right upper quadrant since the seventh month of her . She denies any fevers chills or jaundice. No significant acid reflux or peptic ulcer disease. Ultrasound in the ER last night showed gallstones Review of Systems General: Reports: 10 or more systems reviewed and unremarkable except in HPI and below Medications/Allergies Home Medications Medication Instructions Recorded Confirmed Last Taken Type PNV cmb#95-ferrous fumarate-FA 1 tab PO DAILY 12/25/19 01/26/20 01/25/20 History [] ferrous sulfate 325 mg PO BID #30 tab 12/26/19 01/26/20 1 Day Ago Rx ~01/25/20 ibuprofen 800 mg PO TID #60 tab 12/26/19 01/26/20 01/25/20 Rx Allergies Allergy/AdvReac Type Severity Reaction Status Date / Time No Known Allergies Allergy Verified 01/26/20 03:37 PFSH Acute PFSH: Medical History Cholelithiasis Social History Smoking and tobacco status: never smoked Alcohol intake: former Former alcohol use details: None during . Current occupational status: employed Female Reproductive History: Date of last menstrual period: 02/18/19 Vitals/I&O/Wt Last Vital Signs Temp 98.6 F 01/26/20 08:00 Pulse 48 L 01/26/20 08:00 Resp 14 01/26/20 08:00 BP 94/59 01/26/20 08:00 Pulse Ox 96 01/26/20 08:00 01/25/20 01/26/20 01/26/20 22:59 06:59 14:59 Intake Total 941.667 / 941.667 Output Total 300 / 300 Balance -300 / -300 941.667 / 941.667 Weight last 48 hrs Weight 161 lb Physical Exam Narrative: EXAM NARRATIVE: HEENT: Normocephalic Eye: Sclera /conjunctiva normal Respiratory and chest: Bilateral clear breath sounds on auscultation Cardiovascular: Normal S1 and S2 heart sounds Abdomen: Soft to palpation, mildly tender right upper quadrant Neurological: Oriented to place person and time Skin: Intact, no lesions appreciated on gross exam Data : 01/26/20 03:39 01/26/20 03:39 A&P Assessment and plan (1) Cholelithiasis: 24-year-old female with right upper quadrant pain, nausea and vomiting with ultrasound showing cholelithiasis. WBC, LFTs and lipase were normal Plan for laparoscopic possible open cholecystectomy Procedure, risks, benefits and alternatives have been discussed with the patient who wishes to proceed with surgery. Status: Acute Qualifiers: Biliary obstruction: without biliary obstruction Cholecystitis presence: without cholecystitis Cholelithiasis location: gallbladder Qualified Code(s): K80.20 - Calculus of gallbladder without cholecystitis without obstru ction Attestations Medical Necessity Statement*: Symptomatic cholelithiasis requiring laparoscopic cholecystectomy Coding Level of Care Code Acute Watch And Clock Repair Clerk for [facility] Diagnoses Cholelithiasis K80.20 Biliary obstruction: without biliary obstruction Cholecystitis presence: without cholecystitis Cholelithiasis location: gallbladder
--- NOTE | 2020-01-26 11:09 | P.ANESASSM_ITS ---
Pre-Anesthetic Assessment Pre-Anesthetic Assessment: Height/Weight: Height 1.7 m Weight 73.028 kg Temp Pulse Resp BP Pulse Ox 98.6 F 48 L 14 94/59 96 01/26/20 08:00 01/26/20 08:00 01/26/20 08:00 01/26/20 08:00 01/26/20 08:00 Preop Diagnosis: Cholelithiasis Proposed Procedure: Operation Date: 01/26/20 14:30 Proposed Procedures p Laparoscopic Cholecystectomy(Not Applicable) - Shady Plascencia MD Familial anesthetic complications: None Was Beta Guerline taken within 24 hours: N/A Last intake: Intake Last Liquid Date 01/25/20 Last Liquid Time 19:45 Last Solid Date 01/25/20 Last Solid Time 19:00 Social: Social History: No alcohol and No tobacco Exam: Pre-Anes Outpt Exam: alert, oriented x 3, clear to auscultation bilaterally and regular rate & rhythm Airway: Cervical ROM: WNL MP: 2 Dentition: Full Anesthetic Plan: ASA status: 1 Anesthesia: General Risk of > 500 ml blood loss (7ml/kg in children): No Meds/Allergies Current Medications: Current Medications Generic Name Dose Route Start Last Admin Trade Name Freq PRN Reason Stop Dose Admin Dextrose/Sodium Ch loride 1,000 mls @ 100 m ls/hr 01/25/20 23:53 01/26/20 09:32 Dextrose 5%-Sod Chloride 0.45% IV 100 mls/hr .Q10H ENOCH Administration Piperacillin Sod/T azobactam 50 mls @ 12.5 mls /hr 01/26/20 07:00 01/26/20 06:21 Sod 3.375 gm/ So dium Chloride IV 12.5 mls/hr Q8H ENOCH Administration Protocol PFSH Anesthesia PFSH: Medical History Cholelithiasis Social History Smoking and tobacco status: never smoked Alcohol intake: former Former alcohol use details: None during . Current occupational status: employed Female Reproductive History: Date of last menstrual period: 02/18/19 Data Anesthesia CBC & Chem 7: 01/26/20 03:39 01/26/20 03:39 Other Labs: Laboratory Results - last 48 hr 01/25/20 01/25/20 01/25/20 21:40 21:40 21:50 WBC 11.1 H RBC 4.34 Hgb 12.5 Hct 39.7 MCV 91.5 MCH 28.8 MCHC 31.5 RDW 12.4 Plt Count 352 MPV 10.9 H Neut % (Auto) 72.1 Lymph % (Auto) 19.0 [place] % (Auto) 6.7 Eos % (Auto) 1.4 Baso % (Auto) 0.6 Neut # (Auto) 7.97 H Lymph # (Auto) 2.1 [place] # (Auto) 0.7 Eos # (Auto) 0.2 Baso # (Auto) 0.1 Nucleated RBC % (auto) 0 Nucleated RBCs # 0.0 Sodium 142 Potassium 3.6 Chloride 103 Carbon Dioxide 25 Anion Gap 17.6 BUN 21 H Creatinine 1.0 H GFR Calculation 69.3 L Glucose 110 Calculated Osmolality 298 H Calcium 9.5 Total Bilirubin 0.2 AST 49 H ALT 30 Alkaline Phosphatase 114 H Total Protein 6.9 Albumin 4.5 Globulin 2.4 Lipase 62 H HCG, Qual Urine Color Yellow Urine Appearance Clear Urine pH 5 Ur Specific [place] 1.020 Urine Protein Neg Urine Glucose (UA) Norm Urine Ketones Negative Urine Blood Neg Urine Nitrate Negative Urine Bilirubin Neg Urine Urobilinogen Norm Ur Leukocyte Esterase Negative SARS-CoV-2 Ag (Rapid) 01/25/20 01/25/20 01/26/20 21:50 22:30 03:39 WBC 6.6 RBC 4.35 Hgb 12.5 Hct 39.6 MCV 91.0 MCH 28.7 MCHC 31.6 RDW 12.4 Plt Count 316 MPV 10.6 H Neut % (Auto) 45.9 Lymph % (Auto) 41.9 [place] % (Auto) 7.4 Eos % (Auto) 3.5 Baso % (Auto) 1.1 Neut # (Auto) 3.05 Lymph # (Auto) 2.8 [place] # (Auto) 0.5 Eos # (Auto) 0.2 Baso # (Auto) 0.1 Nucleated RBC % (auto) 0 Nucleated RBCs # 0.0 Sodium Potassium Chloride Carbon Dioxide Anion Gap BUN Creatinine GFR Calculation Glucose Calculated Osmolality Calcium Total Bilirubin AST ALT Alkaline Phosphatase Total Protein Albumin Globulin Lipase HCG, Qual Negative Urine Color Urine Appearance Urine pH Ur Specific [place] Urine Protein Urine Glucose (UA) Urine Ketones Urine Blood Urine Nitrate Urine Bilirubin Urine Urobilinogen Ur Leukocyte Esterase SARS-CoV-2 Ag (Rapid) Negative 01/26/20 03:39 WBC RBC Hgb Hct MCV MCH MCHC RDW Plt Count MPV Neut % (Auto) Lymph % (Auto) [place] % (Auto) Eos % (Auto) Baso % (Auto) Neut # (Auto) Lymph # (Auto) [place] # (Auto) Eos # (Auto) Baso # (Auto) Nucleated RBC % (auto) Nucleated RBCs # Sodium 142 Potassium 4.0 Chloride 107 Carbon Dioxide 25 Anion Gap 14.0 BUN 15 Creatinine 0.8 GFR Calculation 89.7 L Glucose 112 Calculated Osmolality 296 H Calcium 9.2 Total Bilirubin 0.3 AST 35 H ALT 31 Alkaline Phosphatase 101 Total Protein 6.2 L Albumin 3.9 Globulin 2.3 Lipase HCG, Qual Urine Color Urine Appearance Urine pH Ur Specific [place] Urine Protein Urine Glucose (UA) Urine Ketones Urine Blood Urine Nitrate Urine Bilirubin Urine Urobilinogen Ur Leukocyte Esterase SARS-CoV-2 Ag (Rapid) Cardiac Studies: No Data to Display
[2020-01-26] MEDS: sodium chloride 0.9% 1,000 ML 30 ML (11:20)
[2020-01-26] MEDS: fentaNYL 50 mcg/mL INJ 2mL IVP ×2 (12:15→12:20)
[2020-01-26] MEDS: ondansetron 2 mg/ML SDV 2 mL 4 MG IVP (12:24)
--- NOTE | 2020-01-26 12:32 | SUR.PHASEI ---
PT AWAKES EASILY , DOZIING ON RA SATS 98% PT STATES PAIN IS 7 NOW FACE SCALE3 PT REQUESTS ICE CHIPS AND WANT TO GET UP TO BR CALLING REPORT TO FLOOR.
[2020-01-26] MEDS: sodium chloride 0.9% 1,000 ML 100 ML IV (13:02)
--- NOTE | 2020-01-26 14:10 | PC.NURSE ---
patient rates pain 5/10 but refuses pain medication.
--- NOTE | 2020-01-26 14:21 | PM.OP ---
Operative Report Date of procedure: January 26, 2020 Pre-op Diagnosis: Cholelithiasis Post-op diagnosis: same Procedure Done: Laparoscopic cholecystectomy Specimens removed/disposition: Gallbladder Surgeon: Shady Plascencia Anesthesia: General Estimated blood loss (mL): 10 Condition: stable Disposition: PACU Procedure: The patient was taken to the operating room and was intubated under general anesthesia. After the antibiotic had been administered, the abdomen was prepped and draped in a sterile manner. Using a #15 blade, a 1 centimeter infraumbilical curvilinear incision was made and using an open Christina technique the peritoneal cavity was entered. A 10 millimeter port was placed and 15 millimeters of pneumoperitoneum was created. A 10 millimeter, 30 degrees scope was then introduced. Three 5 millimeter ports were placed in the epigastric, midclavicular and the anterior axillary line two fingerbreadths below the costal margin on the right side under the direct visualization. Ratcheted forceps were introduced into the lateral most port and was used to retract the fundus of the gallbladder cephalad and using forceps the infundibulum of the gallbladder was retracted laterally. Using L-hook cautery the peritoneum overlying the Calot's triangle was opened medially and laterally until the cystic duct and the cystic artery were skeletonized. Dissection was carried along the body of the gallbladder and after ensuring critical view of safety, 4 clips applied on the cystic duct and 3 clips applied on the cystic artery and cut leaving, 3 clips on the remaining portion of the duct and 2 clips on the remaining portion of the artery. The rest of the gallbladder was dissected off the liver using L-hook cautery. There was no bleeding or bile leaking noted from the gallbladder fossa and the clips appeared to be in place. An EndoCatch bag was introduced to remove the gallbladder. All the ports were removed under direct visualization and there was no bleeding noted from the port sites. The fascia of the umbilicus was closed using [id number] Vicryl sutures and the subcutaneous tissue was approximated using 3-0 Vicryl sutures. The skin at all four ports were closed using 4-0 Monocryl and Dermabond. A total of 10 millimeters of 0.5% Marcaine was infiltrated around the port sites. The patient was stable throughout the procedure.
--- NOTE | 2020-01-26 14:23 | PM.DCS ---
Discharge Providers Date of Admission: 01/25/20 22:24 Date of Discharge: January 26, 2020 Attending Provider at Admission: Donn Mirza MD Attending Provider at Discharge: Shady Plascencia MD Primary Care Provider: Zaki Oviedo MD Diagnoses at Discharge Discharge Diagnosis (1) Cholelithiasis: Status: Resolved Qualifiers: Biliary obstruction: without biliary obstruction Cholecystitis presence: without cholecystitis Cholelithiasis location: gallbladder Qualified Code(s): K80.20 - Calculus of gallbladder without cholecystitis without obstruction Reason for Visit Reason for Visit: ab pain Hospital Course Hospital Course: Mackenzie Kaye is a 24 year old female who presented to the ER last night with severe right-sided abdominal pain associated nausea and vomiting. Patient had a baby 4 weeks ago and states that she has been having intermittent episodes of pain mainly in the right upper quadrant since the seventh month of her . She denies any fevers chills or jaundice. No significant acid reflux or peptic ulcer disease. Ultrasound in the ER last night showed gallstones Patient was admitted to the hospital and underwent laparoscopic cholecystectomy. At time of discharge her vital signs are stable, she is tolerating clear liquid diet and ambulating. Discharge Data Data Completed and Pending: Completed Studies During Hospitalization Category Date Time Status US gall bladder 7 [id number] Urgent Ultrasound 01/25/20 21:30 Completed Pending at discharge Category Date Time Status Pathology: Surgic al [PTH] Routine Pth 01/26/20 11:57 Received Labs from last 24 hours 01/26/20 01/26/20 01/25/20 03:39 03:39 22:30 WBC 6.6 RBC 4.35 Hgb 12.5 Hct 39.6 MCV 91.0 MCH 28.7 MCHC 31.6 RDW 12.4 Plt Count 316 MPV 10.6 H Neut % (Auto) 45.9 Lymph % (Auto) 41.9 [place] % (Auto) 7.4 Eos % (Auto) 3.5 Baso % (Auto) 1.1 Neut # (Auto) 3.05 Lymph # (Auto) 2.8 [place] # (Auto) 0.5 Eos # (Auto) 0.2 Baso # (Auto) 0.1 Nucleated RBC % (a uto) 0 Nucleated RBCs # 0.0 Sodium 142 Potassium 4.0 Chloride 107 Carbon Dioxide 25 Anion Gap 14.0 BUN 15 Creatinine 0.8 GFR Calculation 89.7 L Glucose 112 Calculated Osmolal ity 296 H Calcium 9.2 Total Bilirubin 0.3 AST 35 H ALT 31 Alkaline Phosphata se 101 Total Protein 6.2 L Albumin 3.9 Globulin 2.3 Lipase HCG, Qual Urine Color Urine Appearance Urine pH Ur Specific Gravit y Urine Protein Urine Glucose (UA) Urine Ketones Urine Blood Urine Nitrate Urine Bilirubin Urine Urobilinogen Ur Leukocyte Razia ase SARS-CoV-2 Ag (Rap id) Negative 01/25/20 01/25/20 01/25/20 21:50 21:50 21:40 WBC RBC Hgb Hct MCV MCH MCHC RDW Plt Count MPV Neut % (Auto) Lymph % (Auto) [place] % (Auto) Eos % (Auto) Baso % (Auto) Neut # (Auto) Lymph # (Auto) [place] # (Auto) Eos # (Auto) Baso # (Auto) Nucleated RBC % (a uto) Nucleated RBCs # Sodium 142 Potassium 3.6 Chloride 103 Carbon Dioxide 25 Anion Gap 17.6 BUN 21 H Creatinine 1.0 H GFR Calculation 69.3 L Glucose 110 Calculated Osmolal ity 298 H Calcium 9.5 Total Bilirubin 0.2 AST 49 H ALT 30 Alkaline Phosphata se 114 H Total Protein 6.9 Albumin 4.5 Globulin 2.4 Lipase 62 H HCG, Qual Negative Urine Color Yellow Urine Appearance Clear Urine pH 5 Ur Specific Gravit y 1.020 Urine Protein Neg Urine Glucose (UA) Norm Urine Ketones Negative Urine Blood Neg Urine Nitrate Negative Urine Bilirubin Neg Urine Urobilinogen Norm Ur Leukocyte Razia ase Negative SARS-CoV-2 Ag (Rap id) 01/25/20 21:40 WBC 11.1 H RBC 4.34 Hgb 12.5 Hct 39.7 MCV 91.5 MCH 28.8 MCHC 31.5 RDW 12.4 Plt Count 352 MPV 10.9 H Neut % (Auto) 72.1 Lymph % (Auto) 19.0 [place] % (Auto) 6.7 Eos % (Auto) 1.4 Baso % (Auto) 0.6 Neut # (Auto) 7.97 H Lymph # (Auto) 2.1 [place] # (Auto) 0.7 Eos # (Auto) 0.2 Baso # (Auto) 0.1 Nucleated RBC % (a uto) 0 Nucleated RBCs # 0.0 Sodium Potassium Chloride Carbon Dioxide Anion Gap BUN Creatinine GFR Calculation Glucose Calculated Osmolal ity Calcium Total Bilirubin AST ALT Alkaline Phosphata se Total Protein Albumin Globulin Lipase HCG, Qual Urine Color Urine Appearance Urine pH Ur Specific Gravit y Urine Protein Urine Glucose (UA) Urine Ketones Urine Blood Urine Nitrate Urine Bilirubin Urine Urobilinogen Ur Leukocyte Razia ase SARS-CoV-2 Ag (Rap id) Vitals: Last Vital Signs Temp 97.8 F 01/26/20 13:30 Pulse 57 L 01/26/20 13:30 Resp 18 01/26/20 13:30 BP 115/82 01/26/20 13:30 Pulse Ox 96 01/26/20 13:30 Discharge Plan Discharge Patient Disposition: Home Condition: Stable Prescriptions: New Ace 5-325 mg tablet 1 tab PO Q6H 7 Days Qty: 20 RF: 0 Zofran 4 mg tablet 4 mg PO Q6H PRN (Reason: nausea and vomiting) Qty: 20 RF: 0 Colace 100 mg capsule 100 mg PO BID Qty: 30 RF: 0 Continued PNV cmb#95-ferrous fumarate-FA [] 28 mg iron- 800 mcg Tablet 1 tab PO DAILY RF: 0 ibuprofen 800 mg Tablet 800 mg PO TID Qty: 60 RF: 0 ferrous sulfate 325 mg (65 mg iron) tablet,delayed release (DR/EC) 325 mg PO BID Qty: 30 RF: 0 Discharge Orders: Discharge Order (Routine); Ordered 01/26/20 Ordered By: Shady Plascencia Referrals: Shady Plascencia MD [Physician] - 2 weeks (02/06/2020 9:30 AM) Discharge Diet: Advance as tolerated Patient Instructions: Hydrocodone/Acetaminophen (By mouth), Laxative, Stool Softeners (By mouth), Ondansetron (By mouth), Laparoscopic Cholecystectomy (DC) Activity Restrictions/Additional Instructions: 1. Up and walking as tolerated. 2. Ok to shower in 48 hours after surgery. 3. Remove Dermabond dressing in 7-10 days. 4. Do not lift more than 10 pounds. 5. Do not operate heavy machinery or drive while using pain medications. 6. Advised to return to ER or contact my office if there are any signs of infection like, increasing pain, fevers, chills, redness or drainage of pus. Discharge Attestations Time Spent in Discharge Care*: less than 30 min Quality Metrics Clinical Quality Measures During this hospital stay, did patient experience: None Coding Level of Care Code Acute Slicer Machine Operator for Chg Fwd Diagnoses Cholelithiasis K80.20 Biliary obstruction: without biliary obstruction Cholecystitis presence: without cholecystitis Cholelithiasis location: gallbladder
--- NOTE | 2020-01-26 17:53 | PC.NURSE ---
patient given discharge instructions and patient verbalized understanding of instructions. IV removed and IV catheter intact. patient taken to private vehicle via wheelchair by staff.
== END 2020-01-26 17:56 | disposition home or self-care (01) ==
LOC: ER 21:23 → MEDSURG 23:01
PROVIDERS: Emergency Medicine; Admitting Provider Family Medicine; PCP Family Medicine; Visit Provider Surgery
PROC: 0FT44ZZ Resection of Gallbladder, Percutaneous Endoscopic Approach (ICD-10-PCS; CPT 47562; principal; 2020-01-26 14:30)
DX: K80.10 Calculus of gallbladder with chronic cholecystitis without obstruction (principal)
CPT/HCPCS: 47562; 12345; 36415; 76705; 80053; 81003; 81025; 83690; 85025; 87426; 88304; 96361; 96365; 96375; 99283; 99285; G0378; J2270; J2405; J2543; J2704; J2710; J3010; J3490; J7030; J7799

== ENCOUNTER → 2021-11-15 11:08 | Outpatient (BNVA) | payer BC, SELFPAY | PROVIDERS: PCP Family Medicine; Visit Provider Family Medicine | DX: Z34.80 Encounter for supervision of other normal pregnancy, unspecified trimester (principal) | CPT/HCPCS: 80307; 85027; 86592; 86762; 86850; 86900; 87086; 87340; 87806 ==

== ENCOUNTER 2021-12-12 14:14 | Outpatient (CLI) | payer BC, MEDICAID, SELFPAY ==
--- NOTE | 2021-12-12 14:15 | US_ITS ---
WS: [id number] EARLY OBSTETRICAL ULTRASOUND (<14 WEEKS). HISTORY: Dates. COMPARISON: None available. Single intrauterine gestational sac is identified. Cardiac activity at 171 BPM. Hypoluxo-rump length josé luis sures 3.4 cm which corresponds to a gestation of 10w2d. Normal-appearing yolk sac and amnion demonstr ated. No subchorionic hemorrhage. No free fluid. Normal size ovaries with no mass. Corpus luteal cyst associated with the RIGHT ovary measures 2.0 x 2 .0 x 2.1 cm. US/US OB <= 14 weeks fetus [id number] IMPRESSION: 1. Single intrauterine gestation of 10 weeks 2 days with an EDC of 07/08/2022. 2. Normal cardiac activity.
== END 2021-12-12 14:15 | disposition home or self-care (01) ==
PROVIDERS: PCP Family Medicine; Visit Provider Family Medicine
DX: Z36.87 Encounter for antenatal screening for uncertain dates (principal); Z3A.10 10 weeks gestation of pregnancy
CPT/HCPCS: 76801

== ENCOUNTER → 2021-12-20 14:49 | Outpatient (BNVA) | payer BC, MEDICAID, SELFPAY | PROVIDERS: PCP Family Medicine; Visit Provider Family Medicine | DX: Z34.80 Encounter for supervision of other normal pregnancy, unspecified trimester (principal) | CPT/HCPCS: 87491; 87591; 88175 ==

== ENCOUNTER → 2022-02-27 08:11 | Outpatient (BNVA) | payer BC, MEDICAID, SELFPAY | PROVIDERS: PCP Family Medicine; Visit Provider Family Medicine | DX: Z34.80 Encounter for supervision of other normal pregnancy, unspecified trimester (principal) | CPT/HCPCS: 76805 ==

== ENCOUNTER → 2022-04-24 09:29 | Outpatient (BNVA) | payer MEDICAID, SELFPAY | PROVIDERS: PCP Family Medicine; Visit Provider Family Medicine | DX: Z34.80 Encounter for supervision of other normal pregnancy, unspecified trimester (principal) | CPT/HCPCS: 82950 ==

== ENCOUNTER 2022-05-02 11:07 | Outpatient (CLI) | payer MEDICAID, SELFPAY ==
--- NOTE | 2022-05-02 11:00 | US_ITS ---
WS: [id number] LIMITED OBSTETRICAL ULTRASOUND HISTORY: Poor growth of BPD and abd circumference - Recheck in 8-9 wk COMPARISON: 02/27/2022, 12/12/2021 Presentation: Transverse, head on maternal LEFT. Cervix: Closed and normal length. Placenta: Posterior, no previa or abruption. Grade: 1 HEART: FHR of 160 BPM. measurements: BPD = 7.3 cm = 29w3d; 13th percentile HC = 27.1 cm = 29w4d; 4th percentile AC = 25.9 cm = 30w0d; 34th percentile FL = 5.7 cm = 29w6d: 21st percentile NIKKI: 12.7 cm, deepest vertical pocket 3.7 cm. EFW: 1474 g; 44th %. AGA by ultrasound: 29w5d NITESH by ultrasound: 07/13/2022 US/US OB limited [id number] IMPRESSION: 1. Single intrauterine gestation of 29 weeks 5 days with an EDC of 07/13/2022. Appropriate growth of the fetus since the first trimester ultrasound. 2. BPD at the 13th percentile and head circumference at the 4th percentile for age. Recommend continued close follow-up for growth restriction. 3. Estimated weight at the 44th percentile for age. 4. Normal amniotic fluid index.
== END 2022-05-02 11:08 | disposition home or self-care (01) ==
LOC: RAD 11:08
PROVIDERS: PCP Family Medicine; Visit Provider Family Medicine
DX: Z34.80 Encounter for supervision of other normal pregnancy, unspecified trimester (principal); Z3A.29 29 weeks gestation of pregnancy
CPT/HCPCS: 76815

== ENCOUNTER → 2022-05-23 10:32 | Outpatient (BNVA) | payer MEDICAID, SELFPAY | PROVIDERS: PCP Family Medicine; Visit Provider Family Medicine | DX: Z34.80 Encounter for supervision of other normal pregnancy, unspecified trimester (principal) | CPT/HCPCS: 85025 ==

== ENCOUNTER 2022-05-30 06:59 | Outpatient (CLI) | payer MEDICAID, SELFPAY ==
--- NOTE | 2022-05-30 07:00 | US_ITS ---
WS: [id number] BIOPHYSICAL PROFILE AND LIMITED OB. HISTORY: growth restriction - NIKKI/BPP/EFW COMPARISON: 12/12/2021, 02/27/2022 and 05/02/2022 Presentation: Cephalic. Cervix: Closed and normal length. Placenta: Posterior and fundal. Grade: 1 HEART: FHR of 141BPM. measurements: BPD = 8.3 cm = 33w3d; 28th percentile HC = 30.0 cm = 33w1d; 3rd percentile AC = 29.9 cm = 33w6d; 37th percentile FL = 6.7 cm = 34w2d; 36 percentile NIKKI: 12.0 3 m; single deep vertical pocket 3.4 cm. EFW: 2285g; 48th percentile AGA by ultrasound: 33w5d NITESH by ultrasound: 07/13/2022 Biophysical profile: Parameters are as follows: Breathin Movement: 2 Tone: 2 Fluid volume: 2 Early during the examination there was very little movement, tone and breathing. After the firs t 30 minutes the patient was given water to drank and the baby became very active. US/US OB lmt w/ BPP wo NST IMPRESSION: 1. Biophysical profile score: 8/8. 2. Single intrauterine gestation of 33w5d with an EDC of 07/13/2022. EDC compare s to 07/08/2022 determined on the first trimester. 3. Estimated weight at the 48th percentile. 4. Abdominal circumference at the 37th percentile. 5. Head circumference is less than the 10th percentile but this may be due to d ifficulty obtaining accurate diameter. The remaining biometry is normal. No oth er evidence for restricted growth. 6. Normal amniotic fluid.
== END 2022-05-30 07:00 | disposition home or self-care (01) ==
LOC: RAD 07:01
PROVIDERS: PCP Family Medicine; Visit Provider Family Medicine
DX: O36.5930 Maternal care for other known or suspected poor fetal growth, third trimester, not applicable or unspecified (principal); Z3A.33 33 weeks gestation of pregnancy
CPT/HCPCS: 76815; 76819

== ENCOUNTER → 2022-06-15 13:25 | Outpatient (BNVA) | payer MEDICAID, SELFPAY | PROVIDERS: PCP Family Medicine; Visit Provider Family Medicine | DX: Z34.90 Encounter for supervision of normal pregnancy, unspecified, unspecified trimester (principal) | CPT/HCPCS: 87081 ==

== ENCOUNTER 2022-07-10 18:43 | Outpatient (CLI) | payer MEDICAID, SELFPAY ==
[2022-07-10 19:00] VITALS: BMI 30.2
[2022-07-10 19:02] VITALS: BP 130/86; PULSE 80
[2022-07-10 19:29] VITALS: BP 136/80; PULSE 82
[2022-07-10 19:58] VITALS: BP 136/80; PULSE 82; RESP 16; TEMP 36.1
== END 2022-07-10 19:58 | disposition home or self-care (01) ==
LOC: OPOB 18:46 → OBGYN 18:49
PROVIDERS: PCP Family Medicine; Visit Provider Family Medicine
DX: O36.8190 Decreased fetal movements, unspecified trimester, not applicable or unspecified (principal); Z3A.00 Weeks of gestation of pregnancy not specified
CPT/HCPCS: 59025; 99211

== ENCOUNTER 2022-07-14 03:43 | Inpatient (IN) | payer MEDICAID, SELFPAY ==
[2022-07-14] VITALS (22 sets, daily range): BP systolic 106–137; BP diastolic 63–87; PULSE 58–100; RESP 17–18; TEMP 35.7–36.9; BMI 30.2
[2022-07-14 03:50] LABS: Basophils % 0.4 %; Eosinophils # 0.1 10^3/uL (0.0-0.8); Eosinophils % 0.7 %; Hematocrit 37.3 % (37.0-47.0); Hemoglobin 11.6 g/dL (11.5-15.3); Lymphocytes # 2.6 10^3/uL (0.8-4.8); Lymphocytes % 25.8 %; Mean Corpuscular HGB Conc 31.1 g/dL (30.0-36.0); Mean Corpuscular Hemoglobin 26.9 pg (28.0-34.0); Mean Corpuscular Volume 86.5 fl (81-99); Mean Platelet Volume 11.6 fL (7.4-10.4); Monocytes # 0.7 10^3/uL (0.2-0.9); Monocytes % 6.5 %; Neutrophils # 6.75 10^3/uL (1.8-7.7); Neutrophils % 66.1 %; Nucleated Red Blood Cells % 0 %; Platelet Count 226 10^3/cmm (130-400); Red Blood Count 4.31 10^6/uL (4.1-5.3); Red Cell Distribution Width 15.8 % (12.1-15.1); White Blood Count 10.2 10^3/uL (4.0-10.0)
--- NOTE | 2022-07-14 05:32 | PM.HP ---
Providers/Chief Complaint Admitting Physician: Zaki Oviedo MD Primary Care Provider: Zaki Oviedo MD Chief Complaint: Contractions History of Present Illness Mackenzie Kaye is a 26 year old @ 40.6 weeks by LMP c/w 10 wk US. Preg c/b h/o anemia, fam history of hemorrhage. The patient began having increased contractions on the afternoon of 07/13/2022. They gradually started increasing overnight and the patient presented to labor and delivery triage due to increased contractions around 3 AM on 07/14/2022. She denied leaking of fluid or vaginal bleeding. The patient denies fever, chest pain, shortness of breath, nausea, vomiting, diarrhea, constipation, dysuria. Medications/Allergies Home Medications Medication Instructions Recorded Confirmed Last Taken Type vit no.95-ferrous 1 tab PO DAILY 12/25/19 07/13/22 01/25/20 History fumarate 28 mg-folic acid 800 mcg tablet () Allergies Allergy/AdvReac Type Severity Reaction Status Date / Time No Known Allergies Allergy Verified 07/10/22 19:49 PFSH Acute PFSH: Surgical History Status post laparoscopic cholecystectomy (01/26/20) Social History Smoking and tobacco status: never smoked Alcohol intake: former Former alcohol use details: None during . Current occupational status: employed Female Reproductive History: : 2 Vitals/I&O/Wt Last Vital Signs Temp 96.3 F L 07/14/22 03:11 Pulse 81 07/14/22 05:34 BP 135/80 07/14/22 05:34 O2 Del Method 07/14/22 03:25 Weight last 48 hrs Weight 193 lb Physical Exam Narrative: General: Alert and oriented x3 Eyes: Pupils equal round and reactive to light and accommodation Mouth: Mucous membranes moist, pharynx non-erythematous Cardiac: Regular rate and rhythm without murmurs Lungs: Clear to auscultation bilaterally without wheezes, crackles or rhonchi Abdomen: Soft, non-tender, fundus consistent with gestational age Extremities: Trace edema in the bilateral lower extremities Data 07/14/22 03:43 A&P Assessment and plan (1) Supervision of normal intrauterine in multigravida: The patient was noted to be 5 to 6 cm dilation in triage with regular contractions and was admitted for labor. She has continued to make good change on her own. The patient declines a laboring epidural and pain medication. The patient is GBS negative. Proceed with intrapartum management of labor and delivery. Attestations Medical Necessity Statement*: The patient will be here for greater than 2 midnights due to routine intrapartum and management of labor and delivery. Coding Level of Care Code Acute Code for Chg Fwd Diagnoses Supervision of normal intrauterine in multigravida Z34.80
--- NOTE | 2022-07-14 06:11 | PM.DELIVERY ---
Delivery Note: Date of delivery: July 14, 2022 Pre-delivery diagnoses: 1. Intrauterine at 40.6 weeks gestation 2. Family history of hemorrhage without personal history of hemorrhage Post-delivery diagnoses: 1. Intrauterine status post spontaneous vaginal delivery at 40.6 weeks gestation 2. Family history of hemorrhage without personal history of hemorrhage 3. Delivery of healthy infant female weighing 6 pounds 12 ounces with Apgars of 8 and 9 Procedure: Spontaneous vaginal delivery Delivering Physician: Zaki Oviedo MD Estimated blood loss (mL): 50 Findings: 1. Healthy infant female weighing 6 pounds 12 ounces with Apgars of 8 and 9 2. Intact placenta with central umbilical cord insertion site Pre-Delivery Course: Mackenzie is a 26 y/o G2 now P2 status post spontaneous vaginal delivery @ 40.6 weeks by LMP c/w 10 wk US. Preg c/b fam history of hemorrhage. The patient began having increased contractions on the afternoon of 07/13/2022.? They gradually started increasing overnight and the patient presented to labor and delivery triage due to increased contractions around 3 AM on 07/14/2022.? She denied leaking of fluid or vaginal bleeding. In labor and delivery she was found to be 5 to 6 cm dilated and she was admitted. The patient made steady change on her own and was complete by 5:34 AM on 07/14/2022. Delivery: AROM was performed at 5:35 AM on 07/14/2022. Clear fluid was noted. The patient began pushing at 5:39 AM and the infant descended rapidly. The infant delivered in the OA position at 5:42 AM on 07/14/2022. The left shoulder was the anterior shoulder and it delivered with downward pressure. The rest of the delivered without complication. There was no nuchal cord. The had good tone and was crying shortly after delivery. The 's mouth and nose were bulb suctioned by myself and the was placed on the mother's chest where the nurses were waiting to care for her. The cord was clamped after approximately 3.5 minutes when no pulsation was noted in the cord. The cord was then cut by the 's father. Cord blood was obtained. The cord was then drained of blood and traction was placed on the umbilical cord. The placenta delivered without complication at 5:48 AM on 07/14/2022. The placenta was noted to be intact with a central umbilical cord insertion site. The uterus was then massaged and the patient had little bleeding. The cervix was inspected and no lacerations were noted. The vaginal wall was inspected and the patient had a small first-degree laceration on the right lower vaginal wall. There was minimal bleeding initially which slowed down significantly with holding pressure. No suturing was needed. Currently both the mother and infant are doing well. The mother plans to breast-feed. History History History 2 Term 2 0 Miscarriages/Ectopic 0 Living Children 2 Past Pregnancies Del. Date GA/Weeks Outcome Route Wt Inf Gender Labor Lgth Comp. Anesthesia Location 12/25/19 40 live - full term Vaginal 6 lb 15 oz Male 12 [facility] 07/14/22 40 live - full term Vaginal 6 lb 12 oz 12 [facility] Delivery Date: 07/14/22 Last Updated by: Zaki Oviedo MD No complications. Spontaneous labor. No epidural. A&P Assessment and plan (1) Spontaneous vaginal delivery: Coding Level of Care Code Acute Code for Chg Fwd Diagnoses Spontaneous vaginal delivery O80
[2022-07-14] MEDS: prenatal vitamin Capsule 1 CAP PO (09:54)
[2022-07-14] MEDS: docusate sodium 100 mg Capsule PO (09:54)
[2022-07-14 20:18] LABS: Hematocrit 37.2 % (37.0-47.0); Hemoglobin 11.8 g/dL (11.5-15.3); Mean Corpuscular HGB Conc 31.7 g/dL (30.0-36.0); Mean Corpuscular Hemoglobin 27.2 pg (28.0-34.0); Mean Corpuscular Volume 85.7 fl (81-99); Mean Platelet Volume 11.7 fL (7.4-10.4); Platelet Count 233 10^3/cmm (130-400); Red Blood Count 4.34 10^6/uL (4.1-5.3); White Blood Count 11.4 10^3/uL (4.0-10.0)
[2022-07-15 03:55] VITALS: BP 101/64; PULSE 82; RESP 16
--- NOTE | 2022-07-15 08:25 | P.DS_ITS ---
Discharge Providers Date of Admission: 07/14/22 03:43 Date of Discharge: July 15, 2022 Attending Provider at Admission: Zaki Oviedo MD Attending Provider at Discharge: Zaki Oviedo MD Primary Care Provider: Zaki Oviedo MD Diagnoses at Discharge Discharge Diagnosis (1) Spontaneous vaginal delivery: Status: Acute Other Information Additional DC diagnoses/information: 1.? Intrauterine status post spontaneous vaginal delivery at 40.6 weeks gestation 2.? Delivery of healthy female weighing 6 pounds 12 ounces with Apgars of 8 and 9? Reason for Visit Reason for Visit: Contractions Brief History: Mackenzie is a 26 y/o G2 now P2 status post spontaneous vaginal delivery @ 40.6 weeks by LMP c/w 10 wk US. Preg c/b fam history of hemorrhage. The patient began having increased contractions on the afternoon of 07/13/2022.? They gradually started increasing overnight and the patient presented to labor and delivery triage due to increased contractions around 3 AM on 07/14/2022.? She denied leaking of fluid or vaginal bleeding.? In labor and delivery she was found to be 5 to 6 cm dilated and she was admitted. Hospital Course Hospital Course The patient made steady change on her own and was complete by 5:34 AM on 07/14/2022. AROM was performed at 5:35 AM on 07/14/2022.? Clear fluid was noted.? The patient began pushing at 5:39 AM and the infant descended rapidly.? The delivered in the OA position at 5:42 AM on 07/14/2022.? The left shoulder was the anterior shoulder and it delivered with downward pressure.? The rest of the infant delivered without complication.? The patient has had no complications at this time. She is eating, ambulating, voiding, passing gas. Her pain is well controlled. Her bleeding has decreased well. The patient would like to be discharged home today. Routine discharge instructions were discussed. All questions were answered. Physical Exam Narrative: General: Alert and oriented x3 Cardiac: Regular rate and rhythm without murmurs Lungs: Clear to auscultation bilaterally without wheezes, crackles or rhonchi Abdomen: Soft, mild tenderness over uterus. The uterus is firm and 2 cm below the umbilicus. Extremities: Trace edema in the bilateral lower extremities Discharge Data Studies Completed and Pending Laboratory Results WBC 11.4 10^3/uL (4.0-10.0) H 07/14/22 20:15 RBC 4.34 10^6/uL (4.1-5.3) 07/14/22 20:15 Hgb 11.8 g/dL (11.5-15.3) 07/14/22 20:15 Hct 37.2 % (37.0-47.0) 07/14/22 20:15 MCV 85.7 fl (81-99) 07/14/22 20:15 MCH 27.2 pg (28.0-34.0) L 07/14/22 20:15 MCHC 31.7 g/dL (30.0-36.0) 07/14/22 20:15 RDW 16.0 % (12.1-15.1) H 07/14/22 20:15 Plt Count 233 10^3/cmm (130-400) 07/14/22 20:15 MPV 11.7 fL (7.4-10.4) H 07/14/22 20:15 Neut % (Auto) 66.1 % 07/14/22 03:43 Lymph % (Auto) 25.8 % 07/14/22 03:43 [place] % (Auto) 6.5 % 07/14/22 03:43 Eos % (Auto) 0.7 % 07/14/22 03:43 Baso % (Auto) 0.4 % 07/14/22 03:43 Neut # (Auto) 6.75 10^3/uL (1.8-7.7) 07/14/22 03:43 Lymph # (Auto) 2.6 10^3/uL (0.8-4.8) 07/14/22 03:43 [place] # (Auto) 0.7 10^3/uL (0.2-0.9) 07/14/22 03:43 Eos # (Auto) 0.1 10^3/uL (0.0-0.8) 07/14/22 03:43 Baso # (Auto) 0.0 10^3/uL (0.0-0.1) 07/14/22 03:43 Nucleated RBC % (auto) 0 % 07/14/22 03:43 Nucleated RBCs # 0.0 /100WBC 07/14/22 03:43 Vitals Last Vital Signs Temp 98.4 F 07/14/22 11:35 Pulse 82 07/15/22 03:55 Resp 16 07/15/22 03:55 BP 101/64 07/15/22 03:55 O2 Del Method 07/15/22 03:55 Discharge Plan Discharge Patient Disposition: Home Condition: Good Prescriptions: New ibuprofen 800 mg Tablet 800 mg PO TID Qty: 30 0RF Continued PNV cmb#95-ferrous fumarate-FA [] 28 mg iron- 800 mcg Tablet 1 tab PO DAILY Discharge Orders: Discharge Order (Routine); Ordered 07/15/22 Ordered By: Zaki Oviedo Referrals: Zaki Oviedo MD [Primary Care Provider] - 6 Weeks Discharge Diet: Regular Discharge Activity: Increase activity as tolerated Patient Instructions: Opioid Safety Activity Restrictions/Additional Instructions: Nothing per vagina for 6 weeks. I recommend that you shower instead of bathe until your bleeding has stopped. Discharge Attestations Time Spent in Discharge Care*: less than 30 min Quality Metrics Clinical Quality Measures [ No reported AMI, CVA or VTE this stay] Coding Level of Care Code Acute Code for Chg Fwd Diagnoses Spontaneous vaginal delivery O80
[2022-07-15] MEDS: prenatal vitamin Capsule 1 CAP PO (09:19)
[2022-07-15] MEDS: ibuprofen 800 mg tablet PO (09:19)
[2022-07-15] MEDS: docusate sodium 100 mg Capsule PO (09:19)
[2022-07-15 09:26] VITALS: BP 100/64; PULSE 83; RESP 15; TEMP 36.8
== END 2022-07-15 13:24 | disposition home or self-care (01) | DRG 807 ==
LOC: OPOB 03:43 → OBGYN 03:43
PROVIDERS: Admitting Provider Family Medicine; PCP Family Medicine; Visit Provider Family Medicine
DX: O48.0 Post-term pregnancy (principal); Z37.0 Single live birth; Z3A.40 40 weeks gestation of pregnancy; Z84.89 Family history of other specified conditions
CPT/HCPCS: 36415; 59025; 59409; 85025; 85027; 99211

== ENCOUNTER → 2024-02-19 11:26 | Outpatient (BNVA) | payer MEDICAID, SELFPAY | PROVIDERS: PCP Family Medicine; Visit Provider Family Medicine | DX: Z51.81 Encounter for therapeutic drug level monitoring (principal); Z13.220 Encounter for screening for lipoid disorders; Z00.00 Encounter for general adult medical examination without abnormal findings | CPT/HCPCS: 80053; 80061; 85025 ==

== ENCOUNTER 2024-05-10 11:08 | Emergency (ER) | payer MEDICAID, SELFPAY ==
[2024-05-10 11:21] VITALS: BP 123/83; PULSE 95; RESP 17; TEMP 37.1; O2SAT 100; BMI 27.8
--- NOTE | 2024-05-10 11:33 | USR_ITS ---
PROCEDURE INFORMATION: Exam: US First Trimester, Transabdominal and US , Transvaginal Exam date and time: 05/10/2024 12:19 PM Age: 28 years old Clinical indication: Lmp or gestational age (in weeks): 8w6d; Antepartum complications; Bleeding; Additional info: Vaginal bleeding LABS AND CLINICAL REPORTS: Last menstrual period start date: 03/09/2024 Gestational age (Established): 8 w 6 d Estimated due date (Established): 12/14/2024 TECHNIQUE: Imaging protocol: Real-time transabdominal obstetrical ultrasound of the maternal pelvis and a first trimester , less than 14 weeks 0 days, with image documentation. Transvaginal imaging was used for better evaluation of the fetus, adnexa, and/or cervix. COMPARISON: US OB lmt w/ BPP wo NST 05/30/2022 7:24 AM FINDINGS: GESTATION: Gestation: No intrauterine is visualized. MATERNAL: Uterus: Uterus measures 5.1 x 4.5 x 8.9 cm. Thickened endometrium measuring 1.3 cm. Cervix: Cervical length measures 3.2 cm. Right ovary/adnexa: Right ovary measures 2.4 x 1.6 x 2.1 cm. There is a hypoechoic tubular structure of the right adnexa measuring 2.4 x 2.0 x 3.4 cm. Left ovary/adnexa: Left ovary measures 2.9 x 2.4 x 2.9 cm. There is a hypoechoic tubular structure at the left adnexa measuring 3.6 x 1.6 cm. Left ovary with small hypoechoic focus with mild circumferential vascularity measuring 0.9 x 0.9 x 0.8 cm possibly representing corpus luteum. Intraperitoneal space: No intraperitoneal free fluid. US/US OB <=14 wk fetus w transvag IMPRESSION: of unknown location. No intrauterine is identified. Findings which may represent early , failed versus ectopic . Recommend follow-up with beta HCG and follow-up ultrasound for further evaluation. Of note, there are two hypoechoic tubular structures at the bilateral adnexa which are favored to represent hydrosalpinx. There is no discrete ectopic noted at the adnexal regions. Attention on follow-up imaging.
[2024-05-10 11:54] LABS: Basophils % 0.5 %; Eosinophils # 0.1 10^3/uL (0.0-0.8); Eosinophils % 1.5 %; Hematocrit 42.2 % (36-47); Lymphocytes % 27.1 %; Mean Corpuscular Hemoglobin 28.5 pg (27-33); Mean Corpuscular Volume 89.2 fl (85-98); Mean Platelet Volume 10.4 fL (7.4-10.4); Monocytes # 0.4 10^3/uL (0.2-0.9); Monocytes % 5.2 %; Neutrophils # 4.83 10^3/uL (1.8-7.7); Neutrophils % 65.6 %; Nucleated Red Blood Cells % 0 %; Platelet Count 315 10^3/cmm (157-399); Red Blood Count 4.73 10^6/uL (3.85-5.65); Red Cell Distribution Width 12.9 % (12.1-15.1); White Blood Count 7.37 10^3/uL (3.29-11.43)
[2024-05-10 11:58] LABS: HCG Qualitative Urine. Positive (Negative)
[2024-05-10 12:10] LABS: Bilirubin Urine Negative (Negative); Blood Urine 3+ (Negative); Glucose Urine UA Negative (Normal); Ketones Urine Negative (Negative); Leukocyte Esterase Urine Negative (Negative); Nitrate Urine Negative (Negative); Protein Urine Trace (Negative); Specific Gravity, Urine 1.022 (1.005-1.030); Urine Appearance Cloudy (CLEAR); Urobilinogen Urine 0.2 mg/dL (Negative); pH Urine 5.5 (5-7)
[2024-05-10 12:16] LABS: Add Urine Microscopic? YES; Bacteria Urine None Seen /hpf; Hyaline Casts Urine 0-4 /lpf; RBC Urine >100 /hpf (0-2); Squamous Epithelial Cell Urine 0-5 /hpf (0-5); WBC Urine 0-5 /hpf (0-5)
[2024-05-10 12:17] LABS: Add Urine Culture? Yes; Urine Color Orange (Yellow)
[2024-05-10 12:21] LABS: Alanine Aminotransferase 10 U/L (0-33); Albumin Level 4.4 g/dL (3.5-5.2); Alkaline Phosphatase 63 U/L (35-105); Aspartate Amino Transferase 14 U/L (0-32); Blood Urea Nitrogen 16 mg/dL (6-20); Calcium 9.1 mg/dL (8.5-10.5); Carbon Dioxide 23 mmol/L (22-29); Chloride 101 mmol/L (98-107); Creatinine Clr Calc Pharmacy 133.1521; Globulin 2.2 g/dL (1.3-4.6); Glomerular Filtration Rate 101.1 mL/min (90-130); Glucose 101 mg/dL (65-115); Osmolality Calculated 281 mOsm/kg (285-295); Sodium 135 mmol/L (136-145); Total Bilirubin 0.4 mg/dL (0.15-1.2); Total Protein 6.6 g/dL (6.6-8.7)
[2024-05-10 12:39] VITALS: BP 119/82; PULSE 89; RESP 16; O2SAT 100
--- NOTE | 2024-05-10 12:55 | ED_ITS ---
HPI - General Adult 2 General: Chief complaint: Vaginal Bleeding Stated complaint: 9 wks preg/spotting Time Seen by Provider: 05/10/24 11:32 History of Present Illness: Patient is a well-appearing 28-year-old female who is and states she is approximately 8 weeks by dates based on her last menstrual cycle presents with vaginal bleeding that began last night. She has had some mild lower abdominal cramping and low back pain. She denies any fevers or chills. She states she did pass a clot per vagina this morning while here in the ER. She denies any fevers or chills. No vomiting. She has not had any care for this as of yet. Associated symptoms: Deny chest pain, dyspnea, nausea or vomiting Related Data Home Medications Medication Instructions Recorded Confirmed No Known Home Medications 05/10/24 05/10/24 Allergies Allergy/AdvReac Type Severity Reaction Status Date / Time No Known Allergies Allergy Verified 07/10/22 19:49 Review of Systems 2 Const: Denies: fever(s) or chills Card: Denies: chest pain Resp: Denies: dyspnea GI: Reports: abdominal pain; Denies: nausea or vomiting PFSH ED 2 PFSH: Surgical History Status post laparoscopic cholecystectomy (01/26/20) Family History Father Pulmonary embolism Social History Smoking and tobacco/nicotine status: never used tobacco/nicotine Alcohol intake: current Alcohol intake frequency: few times a month Substance/Drug Use: never Current occupational status: employed Female Reproductive History: Date of last menstrual period: 03/09/24 Physical Exam 2 Const: COMMON NORMALS: no acute distress, average body habitus, alert and well nourished GENERAL APPEARANCE: cooperative ORIENTATION/CONSCIOUSNESS: Yes awake HENMT: COMMON NORMALS: normocephalic and atraumatic HEAD & SCALP: n ormocephalic and atraumatic Eye: COMMON NORMALS: conjunctivae normal CONJUNCTIVA: Yes conjunctivae normal Neck/C-Spine: GENERAL: Yes normal visual inspection Resp: COMMON NORMALS: normal respiratory effort, No retractions and No use of accessory muscles Cardio: COMMON NORMALS: regular rhythm RHYTHM: regular rhythm Extremity: COMMON NORMALS: full ROM Neuro: COMMON NORMALS: no focal motor deficits SENSORIUM/ORIENTATION: Yes alert Skin: COMMON NORMALS: no rashes or lesions noted GENERAL SKIN EXAM: no rashes or lesions noted Course 2 Vital Signs: Vital signs: Vital Signs Temperature 98.7 F 05/10/24 11:21 Pulse Rate 89 05/10/24 12:39 Respiratory Rate 16 05/10/24 12:39 Blood Pressure 119/82 05/10/24 12:39 Pulse Oximetry 100 05/10/24 12:39 Oxygen Delivery Me thod Room Air 05/10/24 12:[address] [facility] - General Adult Medical Decision Making Patient is a well-appearing 28-year-old female who presents with vaginal bleeding and felt to be approximately 8 weeks based on last menstrual cycle. Vaginal bleeding started yesterday. Her blood type is O+. Beta hCG is around 3500. Labs are otherwise stable. Ultrasound does not show an intrauterine . There are 2 hypoechoic structures in the bilateral adnexa which are favored to represent hydrosalpinx. I discussed the findings of her laboratory and imaging with the patient. We discussed likely miscarriage however patient was counseled that she will certainly need a repeat ultrasound and beta-hCG within 1 week to follow progression. Patient understands need for outpatient follow-up and importance of doing so. Return precautions were provided. Lab Data I reviewed the patient's lab results. 05/10/24 11:46 05/10/24 11:46 Radiology Impressions Obstetrics Ultrasound 05/10/24 11:33 IMPRESSION: of unknown location. No intrauterine is identified. Findings which may represent early , failed versus ectopic . Recommend follow-up with beta HCG and follow-up ultrasound for further evaluation. Of note, there are two hypoechoic tubular structures at the bilateral adnexa which are favored to represent hydrosalpinx. There is no discrete ectopic noted at the adnexal regions. Attention on follow-up imaging. Laboratory Results WBC 7.37 10^3/uL (3.29-11.43) 05/10/24 11:46 RBC 4.73 10^6/uL (3.85-5.65) 05/10/24 11:46 Hgb 13.50 g/dL (11.27-16.99) 05/10/24 11:46 Hct 42.2 % (36-47) 05/10/24 11:46 MCV 89.2 fl (85-98) 05/10/24 11:46 MCH 28.5 pg (27-33) 05/10/24 11:46 MCHC 32.0 g/dL (30-55) 05/10/24 11:46 RDW 12.9 % (12.1-15.1) 05/10/24 11:46 Plt Count 315 10^3/cmm (157-399) 05/10/24 11:46 MPV 10.4 fL (7.4-10.4) 05/10/24 11:46 Neut % (Auto) 65.6 % 05/10/24 11:46 Lymph % (Auto) 27.1 % 05/10/24 11:46 [place] % (Auto) 5.2 % 05/10/24 11:46 Eos % (Auto) 1.5 % 05/10/24 11:46 Baso % (Auto) 0.5 % 05/10/24 11:46 Neut # (Auto) 4.83 10^3/uL (1.8-7.7) 05/10/24 11:46 Lymph # (Auto) 2.0 10^3/uL (0.8-4.8) 05/10/24 11:46 [place] # (Auto) 0.4 10^3/uL (0.2-0.9) 05/10/24 11:46 Eos # (Auto) 0.1 10^3/uL (0.0-0.8) 05/10/24 11:46 Baso # (Auto) 0.0 10^3/uL (0.0-0.1) 05/10/24 11:46 Nucleated RBC % (auto) 0 % 05/10/24 11:46 Nucleated RBCs # 0.0 /100WBC 05/10/24 11:46 Sodium 135 mmol/L (136-145) L 05/10/24 11:46 Potassium 4.0 mmol/L (3.5-5.1) 05/10/24 11:46 Chloride 101 mmol/L (98-107) 05/10/24 11:46 Carbon Dioxide 23 mmol/L (22-29) 05/10/24 11:46 Anion Gap 15.0 (5-19) 05/10/24 11:46 BUN 16 mg/dL (6-20) 05/10/24 11:46 Creatinine 0.7 mg/dL (0.5-0.9) 05/10/24 11:46 GFR Calculation 101.1 mL/min (90-130) 05/10/24 11:46 Glucose 101 mg/dL (65-115) 05/10/24 11:46 Calculated Osmolality 281 mOsm/kg (285-295) L 05/10/24 11:46 Calcium 9.1 mg/dL (8.5-10.5) 05/10/24 11:46 Total Bilirubin 0.4 mg/dL (0.15-1.2) 05/10/24 11:46 AST 14 U/L (0-32) 05/10/24 11:46 ALT 10 U/L (0-33) 05/10/24 11:46 Alkaline Phosphatase 63 U/L (35-105) 05/10/24 11:46 Total Protein 6.6 g/dL (6.6-8.7) 05/10/24 11:46 Albumin 4.4 g/dL (3.5-5.2) 05/10/24 11:46 Globulin 2.2 g/dL (1.3-4.6) 05/10/24 11:46 HCG, Qual Positive (Negative) H 05/10/24 11:50 Ser , Semi-Qnt 3479.00 mIU/mL 05/10/24 11:46 Urine Color [place] (Yellow) A 05/10/24 11:50 Urine Appearance Cloudy (CLEAR) A 05/10/24 11:50 Urine pH 5.5 (5-7) 05/10/24 11:50 Ur Specific [place] 1.022 (1.005-1.030) 05/10/24 11:50 Urine Protein Trace (Negative) A 05/10/24 11:50 Urine Glucose (UA) Negative (Normal) 05/10/24 11:50 Urine Ketones Negative (Negative) 05/10/24 11:50 Urine Blood 3+ (Negative) A 05/10/24 11:50 Urine Nitrate Negative (Negative) 05/10/24 11:50 Urine Bilirubin Negative (Negative) 05/10/24 11:50 Urine Urobilinogen 0.2 mg/dL (Negative) 05/10/24 11:50 Ur Leukocyte Esterase Negative (Negative) 05/10/24 11:50 Urine RBC >100 /hpf (0-2) H 05/10/24 11:50 Urine WBC 0-5 /hpf (0-5) 05/10/24 11:50 Ur Squamous Epith Cells 0-5 /hpf (0-5) 05/10/24 11:50 Urine Bacteria None seen /hpf (NONE) 05/10/24 11:50 Hyaline Casts 0-4 /lpf H 05/10/24 11:50 All radiology interpretation(s) finalized by discharge Discharge Plan Discharge Patient Disposition: Home Clinical Impression: Threatened Condition: Stable Prescriptions: No Action No Known Home Medications Discharge Orders: Discharge ED (Routine); Ordered 05/10/24 Ordered By: Terrell Krueger Referrals: Zaki Oviedo MD [Primary Care Provider] - Discharge Diet: Usual diet Discharge Activity: Resume usual activity Patient Instructions: Threatened Miscarriage (ED), Opioid Safety, Pain Management Activity Restrictions/Additional Instructions: Follow-up with your primary care provider or neck band maker within 1 week for repeat beta-hCG and ultrasound. Return to the emergency department for any new or worsening symptoms or any other concerns. Coding Level of Care Code ED [employer] for Christopher Tovar
[2024-05-10 14:15] VITALS: BP 121/84; PULSE 96; RESP 16; O2SAT 100
== END 2024-05-10 14:16 | disposition home or self-care (01) ==
PROVIDERS: Emergency Provider Student in an Organized Health Care Education/Training Program; PCP Family Medicine
DX: O20.0 Threatened abortion (principal); Z3A.08 8 weeks gestation of pregnancy
CPT/HCPCS: 36415; 76801; 76817; 80053; 81001; 81025; 84702; 85025; 87086; 99284

== ENCOUNTER → 2024-05-14 13:25 | Outpatient (BNVA) | payer MEDICAID, SELFPAY | PROVIDERS: PCP Family Medicine; Visit Provider Family Medicine | DX: O20.0 Threatened abortion (principal) | CPT/HCPCS: 84702 ==